=== PATIENT | male | born 1955 | race Caucasian/White ===

== ENCOUNTER → 2023-08-16 11:28 | Outpatient (REF) | payer OTHER, SELFPAY ==
[2023-08-16 12:52] LABS: Uric Acid 4.6 mg/dl (3.5-8.5)
== END ==
LOC: REG 11:28
PROVIDERS: ATTENDING PHYSICIAN Internal Medicine
DX: M10.9 Gout, unspecified (principal)
CPT/HCPCS: 36415; 73630; 84550

== ENCOUNTER → 2023-10-12 14:36 | Outpatient (REF) | payer OTHER, SELFPAY ==
[2023-10-12 16:05] LABS: % Basophils 0.4 % (0-2); % Eosinophils 0.3 % (0-6); % Immature Granulocytes 0.6 % (0-0.5); % Lymphocytes 10.1 % (20.5-51.1); % Monocytes 10.1 % (1.7-9.3); % Neutrophils 78.5 % (42.2-75.2); Absolute Immature Granulocytes 0.1 10^3/uL (0-0.05); Absolute Lymphocytes 1.1 10^3/uL (1.2-3.4); Absolute Monocytes 1.1 10^3/uL (0.1-0.6); Absolute Neutrophils 8.5 10^3/uL (1.4-6.5); Hematocrit 44.2 % (39.0-52.0); Hemoglobin 14.8 g/dL (13.0-18.0); Mean Corp Hgb Conc. 33.5 g/dL (33.0-37.0); Mean Corpuscular Hgb 28.6 pg (27.0-31.0); Mean Corpuscular Volume 85.5 fL (80.0-94.0); Mean Platelet Volume 10.1 fL (7.4-10.4); Nucleated Red Blood Cells % 0 % (-); Platelet Count 229 10^3/uL (130-400); Red Blood Cell Count 5.17 10^6/uL (4.70-6.10); Red Cell Dist. Width 13.2 % (11.5-14.5); White Blood Cell Count 10.8 10^3/uL (4.8-10.8)
[2023-10-12 16:11] LABS: Urine Albumin Trace (Neg - Trace); Urine Bilirubin 1+ (Negative); Urine Character Clear (Clear); Urine Color Yellow; Urine Glucose Negative (Negative); Urine Ketone Negative (Negative); Urine Leukocyte Trace (Negative); Urine Nitrite Negative (Negative); Urine Occult Blood Trace (Negative); Urine Urobilinogen 1+ (Neg - 1+)
[2023-10-12 16:30] LABS: Urine Mucus Few
[2023-10-12 16:31] LABS: Urine Bacteria Few (Negative); Urine Red Blood Cell 0-2 /HPF (0-2); Urine Squamous Cell 0-2 /LPF (Few); Urine White Cell 0-2 /HPF (0-5)
== END ==
LOC: RAD 14:36
PROVIDERS: ATTENDING PHYSICIAN Internal Medicine
DX: G45.9 Transient cerebral ischemic attack, unspecified (principal); R26.81 Unsteadiness on feet; R47.1 Dysarthria and anarthria; R63.4 Abnormal weight loss; R61 Generalized hyperhidrosis
CPT/HCPCS: 36415; 70450; 81003; 81015; 85025

== ENCOUNTER 2023-10-19 19:08 | Emergency (ER) | payer OTHER, SELFPAY ==
[2023-10-19 19:12] VITALS: BP 128/69; BMI 24.1
[2023-10-19 20:05] VITALS: BP 128/73
[2023-10-19 20:40] LABS: % Basophils 0.2 % (0-2); % Eosinophils 0.7 % (0-6); % Immature Granulocytes 0.4 % (0-0.5); % Lymphocytes 9.7 % (20.5-51.1); % Monocytes 8.4 % (1.7-9.3); % Neutrophils 80.6 % (42.2-75.2); Absolute Eosinophils 0.1 10^3/uL (0-0.7); Absolute Lymphocytes 0.8 10^3/uL (1.2-3.4); Absolute Monocytes 0.7 10^3/uL (0.1-0.6); Absolute Neutrophils 6.9 10^3/uL (1.4-6.5); Hematocrit 38.3 % (39.0-52.0); Hemoglobin 13.1 g/dL (13.0-18.0); Mean Corp Hgb Conc. 34.2 g/dL (33.0-37.0); Mean Corpuscular Hgb 28.2 pg (27.0-31.0); Mean Corpuscular Volume 82.4 fL (80.0-94.0); Mean Platelet Volume 9.2 fL (7.4-10.4); Nucleated Red Blood Cells % 0 % (-); Platelet Count 197 10^3/uL (130-400); Red Blood Cell Count 4.65 10^6/uL (4.70-6.10); Red Cell Dist. Width 13.3 % (11.5-14.5); White Blood Cell Count 8.5 10^3/uL (4.8-10.8)
[2023-10-19 20:55] LABS: ALT (SGPT) 19 U/L (0-50); AST (SGOT) 23 U/L (17-59); Albumin 3.6 g/dl (3.5-5.0); Alkaline Phosphatase 70 U/L (38-126); Blood Urea Nitrogen 22 mg/dl (9-20); Calcium 9.8 mg/dl (8.4-10.2); Carbon Dioxide 28 mmol/L (22-30); Chloride 99 mmol/L (98-107); Estimated Creatinine Clearance 109 ml/min; Glucose 106 mg/dl (70-99); Potassium 4.1 mmol/L (3.5-5.1); Sodium 133 mmol/L (135-145); Total Bilirubin 0.8 mg/dl (0.2-1.3); Total Protein 6.8 g/dl (6.3-8.2); eGFR > 60.00
[2023-10-19 21:00] VITALS: BP 126/67
[2023-10-19 21:26] LABS: TSH 1.29 uIU/ml (0.47-4.68)
[2023-10-19 22:00] VITALS: BP 109/55
--- NOTE | 2023-10-19 22:24 | ED.GENMED ---
History of Present Illness
<Kika Lujan PA-C - Last Filed: 10/20/23 02:20>
General
Chief Complaint: Gait Dysfunction
Source: patient
Exam Limitations: none
Time Seen by Provider: 10/19/23 19:44
Nursing documentation reviewed up to this point in time: agreed with
Travel History
Have you had any contact with someone who has COVID-19?: No
Do you have any symptoms of coronavirus? Fever > 100 degrees, chills, cough, shortness of breath, sore throat, loss of taste or smell, muscle aches, or headache?: No
History of Present Illness
History of Present Illness:
Patient is a 67 yo male who presents to the emergency department for difficulty with his gait, decreased appetite, unintentional weight loss, along with hoarse voice. Patient reports that his symptoms started in August but have progressively
worsened. Patient reports that he saw his primary care provider on 2 occasions and also went to an urgent care facility but they could not figure out what was wrong with him. Patient reports his primary care provider did perform labs which were
reportedly negative. He reports he also had a CT of his head which was also reportedly negative. Patient denies that he has been referred to any specialist. Patient reports he decided to come to the emergency department today because he is
frustrated with how he is feeling and his primary doctor also recommended it. Patient denies any headaches or dizziness recently. Patient denies any vision changes such as blurry vision or double vision. Patient denies any difficulty swallowing
but states that his voice is hoarse. Patient denies chest pain, palpitations, shortness of breath, cough, abdominal pain, nausea, vomiting, diarrhea, constipation. Patient notes that he has had a decreased appetite and has lost approximately 20
pounds since August as a result. Patient denies any diarrhea or constipation. Patient states that he has been holding onto objects in his home to get around. He reports that he is walking with a shuffling gait and sometimes gets frozen and
feels like he cannot move. Patient denies any weakness of his extremities. 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 Patient denies any recent travel, denies any
recent sick contacts. Patient denies family history of neurological diseases or autoimmune processes.
Past History
<Kika Lujan PA-C - Last Filed: 10/20/23 02:20>
Past History
ED Past Medical History: Asthma and Other
Social History
Tobacco: Former smoker
Alcohol: Daily
Personal:
Living: with family
Family History
Family History: CAD
Review of Systems
<Kika Lujan PA-C - Last Filed: 10/20/23 02:20>
Review of Systems
Allergies reviewed?: Yes
All Other Systems: ROS reviewed and negative except as documented in HPI and ROS
Constitutional: Reports weight loss
EENT: Reports other (hoarse voice)
Respiratory: Reports no symptoms; Denies cough or trouble breathing
Cardiac: Reports no symptoms
ABD/GI: Reports no symptoms
: Reports no symptoms
Musculoskeletal: Reports other (difficulty walking)
Skin: Reports no symptoms
Neurological: Reports no symptoms
Endocrine: Reports no symptoms
Hematologic/Lymphatic: Reports no symptoms
Psychiatric: Reports no symptoms
Phy Exam
<Kika Lujan PA-C - Last Filed: 10/20/23 02:20>
General Physical Exam
General Presentation: well appearing and no apparent distress
General Skin: warm and dry
General Habitus: normal
General Mental: alert
General Hydration: appears well hydrated
ENT Exam
ENT Exam: EOMI, pharynx normal, neck supple and normocephalic
Eye Exam
Eye Exam: PERRL, cornea clear and conjunctiva normal
Cardiovascular Exam
Cardiovascular Exam: regular rate/rhythm, no edema, no murmur and normal peripheral pulses
Pulmonary Exam
Pulmonary Exam: lungs clear, no respiratory distress, no rales, no crackles, no rhonchi, no stridor, no wheezing and no cough
Gastrointestinal Exam
Gastrointestinal Exam: normal bowel sounds, non tender, soft, no organomegaly, no pulsatile mass and non distended
Neurological Exam
Neurological Exam: alert, oriented x3, CN II-XII intact, no motor deficits, no sensory deficits, speech normal and abnormal gait
Cerebellar
Cerebellar Function: normal finger to nose and normal heel to ronquillo
Musculoskeletal Exam
Musculoskeletal Exam: full ROM and no edema
Skin Exam
Skin Exam: normal color, warm/dry, no rash and no petechia
Psychiatric Exam
Psychiatric Exam: normal mood/affect
Course
<Kika Lujan PA-C - Last Filed: 10/20/23 02:20>
Orders/Labs/Results
Orders:
Orders
10/19/23 20:34
Complete Blood Count/With Diff Urgent
Comprehensive Metabolic Panel Urgent
TSH Urgent
Abnormal Lab Results
10/19/23
20:34
RBC 4.65 L 10^6/uL
(4.70-6.10)
Hct 38.3 L %
(39.0-52.0)
Absolute Neuts (auto) 6.9 H 10^3/uL
(1.4-6.5)
Absolute Lymphs (auto) 0.8 L 10^3/uL
(1.2-3.4)
Absolute Monos (auto) 0.7 H 10^3/uL
(0.1-0.6)
Neutrophils % 80.6 H %
(42.2-75.2)
Lymphocytes % 9.7 L %
(20.5-51.1)
Sodium 133 L mmol/L
(135-145)
BUN 22 H mg/dl
(9-20)
Glucose 106 H mg/dl
(70-99)
10/19/23 20:34
10/19/23 20:34
Vital Signs
Initial and Last Documented VS:
Initial Vital Signs
Temp Pulse Resp BP Pulse Ox
99.6 F 88 16 128/69 99
10/19/23 19:12 10/19/23 19:12 10/19/23 19:12 10/19/23 19:12 10/19/23 19:12
Last Documented Vital Signs
Temp Pulse Resp BP Pulse Ox
99.6 F 88 16 109/55 97
10/19/23 19:12 10/19/23 19:12 10/19/23 19:12 10/19/23 22:00 10/19/23 20:32
<Silas Frias, DO - Last Filed: 10/20/23 00:27>
Orders/Labs/Results
Orders:
Orders
10/19/23 20:34
Complete Blood Count/With Diff Urgent
Comprehensive Metabolic Panel Urgent
TSH Urgent
Abnormal Lab Results
10/19/23
20:34
RBC 4.65 L 10^6/uL
(4.70-6.10)
Hct 38.3 L %
(39.0-52.0)
Absolute Neuts (auto) 6.9 H 10^3/uL
(1.4-6.5)
Absolute Lymphs (auto) 0.8 L 10^3/uL
(1.2-3.4)
Absolute Monos (auto) 0.7 H 10^3/uL
(0.1-0.6)
Neutrophils % 80.6 H %
(42.2-75.2)
Lymphocytes % 9.7 L %
(20.5-51.1)
Sodium 133 L mmol/L
(135-145)
BUN 22 H mg/dl
(9-20)
Glucose 106 H mg/dl
(70-99)
10/19/23 20:34
10/19/23 20:34
Vital Signs
Initial and Last Documented VS:
Initial Vital Signs
Temp Pulse Resp BP Pulse Ox
99.6 F 88 16 128/69 99
10/19/23 19:12 10/19/23 19:12 10/19/23 19:12 10/19/23 19:12 10/19/23 19:12
Last Documented Vital Signs
Temp Pulse Resp BP Pulse Ox
99.6 F 88 16 109/55 97
10/19/23 19:12 10/19/23 19:12 10/19/23 19:12 10/19/23 22:00 10/19/23 20:32
<Kika Lujan PA-C - Last Filed: 10/20/23 02:20>
*Critical Care Note
Total Time (30-74mins, 75-104mins- exclusive of procedures): Not Applicable
<Kika Lujan PA-C - Last Filed: 10/20/23 02:20>
Update Note
Update Note:
Patient is a 67-year-old male without significant past medical history who presents to the emergency department for evaluation of symptoms for the past 2 months. Patient endorses worsening hoarse voice, decreased appetite, unintentional weight
loss, and difficulty ambulating. Patient has been seen as an outpatient for these problems but without formal diagnosis found. On arrival, patient's vital signs are stable, he is afebrile. On exam, patient is quite well-appearing, he is in no
acute distress, he has a normal cardiopulmonary exam, he has a benign abdomen, he has no focal neurological deficits and has normal strength and coordination in his lower extremities. Patient's gait was observed and does appear to be a slow
shuffling gait. CT performed recently was reviewed and demonstrates no acute intracranial abnormality to account for the patient's symptoms, do not feel that patient would benefit from this being repeated today. Labs were obtained and are
nonactionable. Case was discussed with ED attending who also evaluated the patient. I spoke with the patient at length and he feels comfortable being discharged to home. He reports that he feels safe at home. He was encouraged to follow-up
closely with neurology for definitive diagnosis and treatment. Patient was also educated on strict return precautions, he expressed understanding of the plan and agreed.
ED Attending Note
<Kika Lujan PA-C - Last Filed: 10/20/23 02:20>
-
Portions of this chart may have been created with voice recognition software.� Occasional wrong word or��sound alike� substitutions may have occurred due to the inherent limitations of voice recognition software.
<Silas Frias DO - Last Filed: 10/20/23 00:27>
ED Attending Note
Patient seen and examined by attending physician: Yes
I performed the substantive portion of visit, reviewed & personally made and approve the management plan that is documented in note by myself or JUNITO.: Yes
ED Attending Note:
Agree with JAI note above. In short 67-year-old male who is seen his PCP several times for complaints that they 'cannot figure out'. Reports difficulty with ambulation. Exam: Normal [id number]. Normal strength. Normal distal pulses. Normal
gross neuroassessment. Outpatient CT report reviewed. Assessment and plan: Does need outpatient neurology follow-up. Labs grossly unremarkable.
Discharge Plan
Departure
Patient Disposition: Home (Routine Discharge)
Date of Disposition: 10/19/23
Time of Disposition: 22:38
Patient with high blood pressure during this ER visit?: No
Condition: Good
Covid-19: Not Applicable
Discharge Problem:
Abnormality of gait, Unintentional weight loss
Instructions: Preventing Falls ED
Prescriptions:
No Action
multivitamin with folic acid [Tab-A-Michelle] 1 TABLET tablet
1 tab PO DAILY Qty: 0 0RF
diazepam 10 mg Tablet
10 mg PO HSPRN PRN (Reason: sleep)
acetaminophen [Tylenol] 325 mg Tablet
650 mg PO Q6HPRN PRN (Reason: mild pain)
Referrals:
Migel Mendoza MD [Active] - Follow up in 5-7 days
Kory Anglin MD [Family Provider] -
Activity Restrictions/Additional Instructions:
You were seen in the emergency department for recent abnormal gait, decreased appetite, unintentional weight loss, and hoarse voice. While you were in the emergency department, you had blood work which shows no dangerous abnormalities. The exact
cause of your symptoms is unclear. It is extremely important that you follow-up with a neurologist for further evaluation and treatment as we suspect you could be suffering from a neurological condition. In the meantime, please walk carefully to
avoid falling. Please return to the emergency department if you feel unsafe at home, if you fall or feel like you are going to fall, if you have weakness of one or more of your extremities, or for any other worsening or concerning symptoms.
Interventions
Interventions:
*Risk Screen - Suicide Last Done: 10/19/23 19:12
*General Assessment Last Done: 10/19/23 20:07
*Neglect/Abuse Screening Last Done: 10/19/23 19:12
ED- Fall Risk Assessment Last Done: 10/19/23 20:07
*ED COVID-19 Vaccine History Last Done: 10/19/23 19:12
*Nursing Disposition Last Done: 10/19/23 23:17
ED- Neurological Assessment Last Done: 10/19/23 20:07
ED-Musculoskeletal Assessment Last Done: 10/19/23 20:07
ED Swallowing Screen Last Done: 10/19/23 20:07
Discharge Date and Time
Discharge Date/Time: 10/19/23 23:17
Print Language: ZAMBIAN
== END 2023-10-19 23:17 | disposition home or self-care (01) ==
LOC: EMR 19:08
PROVIDERS: Physician Assistant Medical; EMERGENCY PHYSICIAN Emergency Medicine; FAMILY PHYSICIAN Internal Medicine
DX: R26.9 Unspecified abnormalities of gait and mobility (principal); R63.4 Abnormal weight loss; J45.909 Unspecified asthma, uncomplicated; Z87.891 Personal history of nicotine dependence; Z82.49 Family history of ischemic heart disease and other diseases of the circulatory system
CPT/HCPCS: 99283; 80053; 84443; 85025

== ENCOUNTER → 2023-11-16 11:05 | Outpatient (REF) | payer OTHER, SELFPAY | LOC: HWRCS 11:05 | PROVIDERS: ATTENDING PHYSICIAN Nuclear Medicine Nuclear Cardiology; FAMILY PHYSICIAN Internal Medicine | DX: I34.0 Nonrheumatic mitral (valve) insufficiency (principal); I38 Endocarditis, valve unspecified | CPT/HCPCS: 93306 ==

== ENCOUNTER → 2024-01-04 09:08 | Outpatient (REF) | payer OTHER, SELFPAY | LOC: RCS 09:08 | PROVIDERS: ATTENDING PHYSICIAN Nuclear Medicine Nuclear Cardiology; FAMILY PHYSICIAN Internal Medicine | DX: I34.0 Nonrheumatic mitral (valve) insufficiency (principal); I34.81 Nonrheumatic mitral (valve) annulus calcification; I37.1 Nonrheumatic pulmonary valve insufficiency; I15.9 Secondary hypertension, unspecified | CPT/HCPCS: 93017; 93350 ==

== ENCOUNTER → 2024-03-31 09:58 | Outpatient (REF) | payer OTHER, SELFPAY | LOC: RCS 09:58 | PROVIDERS: ATTENDING PHYSICIAN Nuclear Medicine Nuclear Cardiology; FAMILY PHYSICIAN Internal Medicine | DX: I34.0 Nonrheumatic mitral (valve) insufficiency (principal); R06.02 Shortness of breath | CPT/HCPCS: 93306 ==

== ENCOUNTER → 2024-04-30 07:21 | Outpatient (REF) | payer MEDICARE, SELFPAY ==
[2024-04-30 08:05] LABS: % Basophils 0.6 % (0-2); % Eosinophils 2.5 % (0-6); % Immature Granulocytes 0.3 % (0-0.5); % Lymphocytes 26.6 % (20.5-51.1); % Monocytes 8.8 % (1.7-9.3); % Neutrophils 61.2 % (42.2-75.2); Absolute Eosinophils 0.2 10^3/uL (0-0.7); Absolute Lymphocytes 1.8 10^3/uL (1.2-3.4); Absolute Monocytes 0.6 10^3/uL (0.1-0.6); Absolute Neutrophils 4.2 10^3/uL (1.4-6.5); Hemoglobin 16.7 g/dL (13.0-18.0); Mean Corp Hgb Conc. 34.1 g/dL (33.0-37.0); Mean Corpuscular Hgb 29.6 pg (27.0-31.0); Mean Corpuscular Volume 86.7 fL (80.0-94.0); Mean Platelet Volume 10.6 fL (7.4-10.4); Nucleated Red Blood Cells % 0 % (-); Platelet Count 193 10^3/uL (130-400); Red Blood Cell Count 5.65 10^6/uL (4.70-6.10); Red Cell Dist. Width 13.7 % (11.5-14.5); White Blood Cell Count 6.8 10^3/uL (4.8-10.8)
[2024-04-30 08:44] LABS: ALT (SGPT) 26 U/L (0-50); AST (SGOT) 24 U/L (17-59); Albumin 4.5 g/dl (3.5-5.0); Alkaline Phosphatase 54 U/L (38-126); Blood Urea Nitrogen 22 mg/dl (9-20); Calcium 9.7 mg/dl (8.4-10.2); Carbon Dioxide 30 mmol/L (22-30); Chloride 101 mmol/L (98-107); Glucose 96 mg/dl (70-99); Potassium 4.2 mmol/L (3.5-5.1); Sodium 141 mmol/L (135-145); Total Bilirubin 1.3 mg/dl (0.2-1.3); Total Protein 7.1 g/dl (6.3-8.2); eGFR > 60.00
[2024-04-30 09:08] LABS: PSA, Total - Screen 1.36 ng/ml (0.0-4.0); TSH 1.51 uIU/ml (0.47-4.68)
== END ==
LOC: REG 07:21
PROVIDERS: ATTENDING PHYSICIAN Internal Medicine
DX: I33.0 Acute and subacute infective endocarditis (principal); B95.5 Unspecified streptococcus as the cause of diseases classified elsewhere; I34.0 Nonrheumatic mitral (valve) insufficiency; G47.33 Obstructive sleep apnea (adult) (pediatric); F32.1 Major depressive disorder, single episode, moderate; Z00.00 Encounter for general adult medical examination without abnormal findings; Z12.5 Encounter for screening for malignant neoplasm of prostate
CPT/HCPCS: 36415; 80053; 84443; 85025; G0103

== ENCOUNTER → 2024-07-26 12:49 | Outpatient (REF) | payer MEDICARE, SELFPAY | LOC: MRI 3T 12:49 | PROVIDERS: ATTENDING PHYSICIAN Internal Medicine | DX: R26.9 Unspecified abnormalities of gait and mobility (principal); R29.6 Repeated falls; G25.2 Other specified forms of tremor; R41.3 Other amnesia; Z86.79 Personal history of other diseases of the circulatory system; I34.0 Nonrheumatic mitral (valve) insufficiency | CPT/HCPCS: 70551 ==

== ENCOUNTER → 2024-09-26 15:46 | Outpatient (REF) | payer MEDICARE, SELFPAY ==
[2024-09-26 16:30] LABS: % Basophils 0.5 % (0-2); % Eosinophils 1.4 % (0-6); % Immature Granulocytes 0.2 % (0-0.5); % Lymphocytes 28.9 % (20.5-51.1); % Monocytes 11.6 % (1.7-9.3); % Neutrophils 57.4 % (42.2-75.2); Absolute Eosinophils 0.1 10^3/uL (0-0.7); Absolute Lymphocytes 1.7 10^3/uL (1.2-3.4); Absolute Monocytes 0.7 10^3/uL (0.1-0.6); Absolute Neutrophils 3.3 10^3/uL (1.4-6.5); Hematocrit 43.7 % (39.0-52.0); Hemoglobin 14.7 g/dL (13.0-18.0); Mean Corp Hgb Conc. 33.6 g/dL (33.0-37.0); Mean Corpuscular Hgb 29.5 pg (27.0-31.0); Mean Corpuscular Volume 87.8 fL (80.0-94.0); Mean Platelet Volume 10.5 fL (7.4-10.4); Nucleated Red Blood Cells % 0 % (-); Platelet Count 201 10^3/uL (130-400); Red Blood Cell Count 4.98 10^6/uL (4.70-6.10); Red Cell Dist. Width 13.2 % (11.5-14.5); White Blood Cell Count 5.7 10^3/uL (4.8-10.8)
[2024-09-26 16:46] LABS: Erythrocyte Sed Rate 10 mm/hour (0-20)
[2024-09-26 16:52] LABS: ALT (SGPT) 21 U/L (0-50); AST (SGOT) 22 U/L (17-59); Albumin 4.3 g/dl (3.5-5.0); Alkaline Phosphatase 77 U/L (38-126); Blood Urea Nitrogen 17 mg/dl (9-20); Calcium 9.8 mg/dl (8.4-10.2); Carbon Dioxide 29 mmol/L (22-30); Chloride 100 mmol/L (98-107); Glucose 81 mg/dl (70-99); Sodium 137 mmol/L (135-145); Total Bilirubin 1.2 mg/dl (0.2-1.3); Total Protein 6.9 g/dl (6.3-8.2); eGFR > 60.00
[2024-09-26 17:18] LABS: TSH 1.17 uIU/ml (0.47-4.68)
== END ==
LOC: REG 15:46
PROVIDERS: ATTENDING PHYSICIAN Internal Medicine
DX: R26.9 Unspecified abnormalities of gait and mobility (principal); R29.6 Repeated falls; G25.2 Other specified forms of tremor; R41.3 Other amnesia; Z86.79 Personal history of other diseases of the circulatory system; I34.0 Nonrheumatic mitral (valve) insufficiency
CPT/HCPCS: 36415; 80053; 84443; 85025; 85652

== ENCOUNTER 2024-10-27 07:45 | Emergency (ER) | payer MEDICARE, SELFPAY ==
[2024-10-27 07:50] VITALS: BP 143/77
--- NOTE | 2024-10-27 08:24 | ED.GENMED ---
History of Present Illness
<TARIQ De Santiago - Last Filed: 10/27/24 09:38>
General
Chief Complaint: Musculo-Skeletal Complaint
Source: patient
Exam Limitations: none
Time Seen by Provider: 10/27/24 08:10
Nursing documentation reviewed up to this point in time: agreed with
History of Present Illness
History of Present Illness:
Patient is a 5-year-old male who presents to the ER for evaluation. He reports he is here for 2 separate complaints. About a week ago he fell in his left hip and has obvious swelling to the hip. He denies any actual pain and has been walking on
it fine. He denies any other injury at that time. He did not hit his head. In addition he also complains of sudden loss of hearing from his right ear that started a week and a half ago. He does report however that he has been already seeing ENT
and is scheduled for more test in the next month. He denies any ear pain or drainage. Denies any recent associated fever or chills. Denies any headache blurry vision. No other neurological complaints. He denies any upper lower extremity
numbness tingling weakness.
Past History
<TARIQ De Santiago - Last Filed: 10/27/24 09:38>
Past History
ED Past Medical History: Asthma and Other
Social History
Tobacco: Former smoker
Alcohol: Daily
Personal:
Living: with family
Family History
Family History: CAD
Phy Exam
<TARIQ De Santiago - Last Filed: 10/27/24 09:38>
General Physical Exam
General Presentation: no apparent distress
General age: appears stated age
General Skin: warm and dry
General Habitus: normal
General Mental: alert
General Hydration: appears well hydrated
ENT Exam
ENT Exam: EOMI, TM's normal and neck supple
Cardiovascular Exam
Cardiovascular Exam: regular rate/rhythm, no murmur and normal peripheral pulses
Pulmonary Exam
Pulmonary Exam: lungs clear and no respiratory distress
Neurological Exam
Neurological Exam: alert, oriented x3, no motor deficits and no sensory deficits
Musculoskeletal Exam
Musculoskeletal Exam: full ROM
Skin Exam
Skin Exam: normal color and warm/dry
Psychiatric Exam
Psychiatric Exam: normal mood/affect
Course
<JANN De SantiagoNP - Last Filed: 10/27/24 09:38>
Orders/Labs/Results
Orders:
Orders
10/27/24 08:24
Hip, Left 2-3 Views [CR Hip - LT w/wo Pel 2-3 Vw*] Urgent
Comment:
Reason For Exam: trauma
Include a pelvis x-ray?: Yes
10/27/24 08:25
CT Head W/o Iv Contrast Urgent
Comment:
Reason For Exam: sudden loss of hearing 1.5 wks ago left EAR
Vital Signs
Initial and Last Documented VS:
Initial Vital Signs
Temp Pulse Resp BP Pulse Ox
98.0 F 67 16 143/77 98
10/27/24 07:50 10/27/24 07:50 10/27/24 07:50 10/27/24 07:50 10/27/24 07:50
Last Documented Vital Signs
Temp Pulse Resp BP Pulse Ox
98.0 F 67 16 143/77 98
10/27/24 07:50 10/27/24 07:50 10/27/24 07:50 10/27/24 07:50 10/27/24 07:50
<Josh Akhtar DO - Last Filed: 10/27/24 09:22>
Orders/Labs/Results
Orders:
Orders
10/27/24 08:24
Hip, Left 2-3 Views [CR Hip - LT w/wo Pel 2-3 Vw*] Urgent
Comment:
Reason For Exam: trauma
Include a pelvis x-ray?: Yes
10/27/24 08:25
CT Head W/o Iv Contrast Urgent
Comment:
Reason For Exam: sudden loss of hearing 1.5 wks ago left EAR
Vital Signs
Initial and Last Documented VS:
Initial Vital Signs
Temp Pulse Resp BP Pulse Ox
98.0 F 67 16 143/77 98
10/27/24 07:50 10/27/24 07:50 10/27/24 07:50 10/27/24 07:50 10/27/24 07:50
Last Documented Vital Signs
Temp Pulse Resp BP Pulse Ox
98.0 F 67 16 143/77 98
10/27/24 07:50 10/27/24 07:50 10/27/24 07:50 10/27/24 07:50 10/27/24 07:50
<TARIQ De Santiago - Last Filed: 10/27/24 09:38>
MDM/Problems Addressed
Differential Diagnosis Includes:
not limited to:
Hip contusion less likely hip fracture, hematoma hearing loss(currently being worked up by ENT)
MDM/Problems Addressed:
Patient is a 68 year-old male who presented for 2 complaints. Patient fell and injured his left hip about a week ago and on exam has an obvious what appears to be a hematoma to his left lateral proximal hip/thigh region. He has full
internal/external rotation and is able to bear weight. Clinically this examines like a hematoma. He is in no acute distress. There is no other extremity swelling. He is not on blood thinners. In addition patient reports separately that for over
a week and a half he has noticed that he has lost his hearing in his right ear. He however is in the process of getting worked up by an ENT and has additional testing scheduled in the later month. He has no ear pain and on exam his TM is dull
however there is no obvious cerumen buildup. He is nontoxic. He has no associated neurological problem complaints. His neurological exam is negative. His CT head is negative
Case discussed ED physician. Will have patient continue with ENT follow-up.
<TARIQ De Santiago - Last Filed: 10/27/24 09:38>
*Radiology
Radiology exam reviewed: radiology read reviewed
*Pulse Oximetry
Patient hypoxic: no
ED Attending Note
<TARIQ De Santiago - Last Filed: 10/27/24 09:38>
-
Portions of this chart may have been created with voice recognition software.� Occasional wrong word or��sound alike� substitutions may have occurred due to the inherent limitations of voice recognition software.
<Josh Akhtar DO - Last Filed: 10/27/24 09:22>
ED Attending Note
Patient seen and examined by attending physician: Yes
I performed the substantive portion of visit, reviewed & personally made and approve the management plan that is documented in note by myself or JUNITO.: Yes
ED Attending Note:
I have seen and evaluated the patient with a [id number] encounter. I have spoken to the advance practicer provider and involved in the medical history, the physical exam, medical decision making.
Evaluation and management service: agree unless noted differently below.
Results interpretation: agree unless noted differently below.
Focused HPI: 68-year-old male presenting for evaluation of right sided hearing loss and left hip pain. The 2 appear to be unrelated. He noticed sudden onset of hearing loss in the right ear. He denies any congestion or headache or preceding
symptoms. Patient did have a recent fall and has swelling over left hip.
Physical exam: Patient has what appears to be hematoma to his left hip. He does have hearing loss to the right ear but canal clear. Normal finger-nose bilaterally. No nystagmus
Medical Decision Making: CT head negative. Hip x-ray negative. Discussed likely hematomas left hip. This will likely self resolve. We discussed follow-up with ENT for further workup of hearing loss
Discharge Plan
Departure
Patient Disposition: Home (Routine Discharge)
Date of Disposition: 10/27/24
Time of Disposition: 09:17
Patient with high blood pressure during this ER visit?: Yes
Condition: Fair
Covid-19: Not Applicable
Discharge Problem:
Hematoma, Contusion, Hearing loss
Instructions: Hearing Loss in Adults, Contusion (DC)
Prescriptions:
No Action
multivitamin with folic acid [Tab-A-Michelle] 1 TABLET tablet
1 tab PO DAILY Qty: 0 0RF
diazepam 10 mg Tablet
10 mg PO HSPRN PRN (Reason: sleep)
acetaminophen [Tylenol] 325 mg Tablet
650 mg PO Q6HPRN PRN (Reason: mild pain)
Referrals:
Kory Anglin MD [Family Provider] -
Activity Restrictions/Additional Instructions:
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
Regarding the left hip swelling ;this is a contusion which will resolve on its own. Return if any worsening of symptoms. Follow-up with your family doctor the next 2 days for reevaluation.
Interventions
Interventions:
*Risk Screen - Suicide Last Done: 10/27/24 07:50
*Neglect/Abuse Screening Last Done: 10/27/24 07:50
Discharge Date and Time
Print Language: CAMEROONIAN
[2024-10-27 09:00] VITALS: BP 139/85
== END 2024-10-27 09:45 | disposition home or self-care (01) ==
LOC: EMR 07:45
PROVIDERS: EMERGENCY PHYSICIAN Student in an Organized Health Care Education/Training Program; FAMILY PHYSICIAN Internal Medicine
DX: S70.02XA Contusion of left hip, initial encounter (principal); H91.91 Unspecified hearing loss, right ear; X58.XXXA Exposure to other specified factors, initial encounter; J45.909 Unspecified asthma, uncomplicated; Z82.49 Family history of ischemic heart disease and other diseases of the circulatory system; Z87.891 Personal history of nicotine dependence
CPT/HCPCS: 99284; 70450; 73502

== ENCOUNTER → 2024-12-23 09:59 | Outpatient (REF) | payer MEDICARE, SELFPAY ==
[2024-12-23 12:26] LABS: % Basophils 0.7 % (0-2); % Eosinophils 0.7 % (0-6); % Immature Granulocytes 0.4 % (0-0.5); % Lymphocytes 10.7 % (20.5-51.1); % Monocytes 8.3 % (1.7-9.3); % Neutrophils 79.2 % (42.2-75.2); Absolute Basophils 0.1 10^3/uL (0-0.2); Absolute Eosinophils 0.1 10^3/uL (0-0.7); Absolute Lymphocytes 0.7 10^3/uL (1.2-3.4); Absolute Monocytes 0.6 10^3/uL (0.1-0.6); Absolute Neutrophils 5.3 10^3/uL (1.4-6.5); Hematocrit 47.9 % (39.0-52.0); Hemoglobin 15.7 g/dL (13.0-18.0); Mean Corp Hgb Conc. 32.8 g/dL (33.0-37.0); Mean Corpuscular Hgb 28.7 pg (27.0-31.0); Mean Corpuscular Volume 87.6 fL (80.0-94.0); Mean Platelet Volume 10.4 fL (7.4-10.4); Nucleated Red Blood Cells % 0 % (-); Platelet Count 251 10^3/uL (130-400); Red Blood Cell Count 5.47 10^6/uL (4.70-6.10); Red Cell Dist. Width 12.8 % (11.5-14.5); White Blood Cell Count 6.7 10^3/uL (4.8-10.8)
[2024-12-23 12:49] LABS: Erythrocyte Sed Rate 9 mm/hour (0-20)
[2024-12-23 13:11] LABS: Blood Urea Nitrogen 30 mg/dl (9-20)
[2024-12-25 13:43] LABS: Rheumatoid Agglutinin Less Than 10 IU (<10 IU)
== END ==
LOC: PAVMRI 09:59
PROVIDERS: ATTENDING PHYSICIAN Otolaryngology; FAMILY PHYSICIAN Internal Medicine
DX: H91.21 Sudden idiopathic hearing loss, right ear (principal); G47.33 Obstructive sleep apnea (adult) (pediatric)
CPT/HCPCS: 36415; 70553; 82565; 84520; 85025; 85652; 86038; 86430; 86780; A9575

== ENCOUNTER 2025-01-01 11:49 | Inpatient (IN) | payer MEDICARE, SELFPAY ==
[2024-12-31 19:48] VITALS: BMI 23.6
[2024-12-31 19:50] VITALS: BP 134/76
[2024-12-31 21:38] VITALS: BP 137/71
[2024-12-31 21:53] LABS: % Basophils 0.7 % (0-2); % Eosinophils 0.8 % (0-6); % Immature Granulocytes 0.3 % (0-0.5); % Lymphocytes 16.1 % (20.5-51.1); % Neutrophils 67.1 % (42.2-75.2); Absolute Basophils 0.1 10^3/uL (0-0.2); Absolute Eosinophils 0.1 10^3/uL (0-0.7); Absolute Lymphocytes 1.2 10^3/uL (1.2-3.4); Absolute Monocytes 1.1 10^3/uL (0.1-0.6); Absolute Neutrophils 4.9 10^3/uL (1.4-6.5); Hematocrit 40.2 % (39.0-52.0); Hemoglobin 13.6 g/dL (13.0-18.0); Mean Corp Hgb Conc. 33.8 g/dL (33.0-37.0); Mean Corpuscular Volume 85.7 fL (80.0-94.0); Mean Platelet Volume 10.2 fL (7.4-10.4); Nucleated Red Blood Cells % 0 % (-); Platelet Count 188 10^3/uL (130-400); Red Blood Cell Count 4.69 10^6/uL (4.70-6.10); Red Cell Dist. Width 13.2 % (11.5-14.5); White Blood Cell Count 7.4 10^3/uL (4.8-10.8)
[2024-12-31 22:00] VITALS: BP 144/74
--- NOTE | 2024-12-31 22:01 | ED.GENMED ---
History of Present Illness
General
Chief Complaint: Social Service Referral
Source: patient
Time Seen by Provider: 12/31/24 21:23
History of Present Illness
History of Present Illness:
Note:
CHIEF COMPLAINT(S)
Seeking assistance due to inability to self-care.
HISTORY OF PRESENT ILLNESS
The patient is a 69-year-old male who presented to the emergency department due to difficulties in self-care and otherwise multiple vague symptoms including reported mass/edema to right upper thigh/pelvis, lack of PO intake to solids and liquids,
generalized fatigue, right ear fullness. The symptoms began approximately three weeks ago. The patient recently had assistance from a brother but is now unable to care for himself and is seeking help, as he lives alone in a third-floor apartment.
He denies any chronic medical conditions and is not on any regular medications. He reports no chest pain, difficulty breathing, or lower extremity swelling although patient does show me a mass/lump on his left anterior thigh/pelvic region that he
states was only present about 2 weeks ago, does not seem to be growing in size since noticing the mass.. He also denies feeling depressed or suicidal but expresses vague symptoms and is uncertain about the specific help needed. The patient denies
any falls. He denies a family history of cancer and does not smoke cigarettes or use tobacco or alcohol.
SOCIAL DETERMINANTS AFFECTING HEALTH
The patient lives alone in a third-floor apartment and currently lacks assistance with self-care.
FAMILY HISTORY
The patient denies any family history of cancer.
SOCIAL HISTORY
The patient does not smoke cigarettes or use tobacco. He also denies alcohol consumption.
Past History
Past History
ED Past Medical History: Asthma and Other
Social History
Tobacco: Former smoker
Alcohol: Daily
Personal:
Living: with family
Family History
Family History: CAD
Review of Systems
Review of Systems
All Other Systems: ROS reviewed and negative except as documented in HPI and ROS
Phy Exam
Physical Exam
Physical Exam:
GENERAL: Alert , in no apparent distress
HEAD: Normocephalic atraumatic
EYE: Clear conjunctiva
NECK: Supple
ENT: o/p clr, mmm.
CARDIAC: Regular rate and rhythm .
LUNGS: Clear breath sounds bilaterally, no acute respiratory distress, no wheezes/rales/rhonchi
ABDOMEN: Soft, without focal tenderness, no r/g, no cvat
NEUROLOGICAL: Alert and oriented, no focal neuro deficits
SKIN: Warm and dry, Large firm and nonmobile masslike structure appreciated to the left anterior proximal thigh/pelvis without any overlying skin changes
MUSCULOSKELETAL: No edema, well perfused.
PSYCH: Normal and appropriate interaction.
Scores
Heart Failure Risk
Heart Failure Risk Score: Not Applicable
Heart Score for Chest Pain Patients
STEMI patient?: Not applicable
Withdrawal Assessment of Alcohol
Withdrawal Assessment Completed?: Not applicable
Course
Orders/Labs/Results
Orders:
Orders
12/31/24 21:43
Complete Blood Count/With Diff Urgent
Comprehensive Metabolic Panel Urgent
12/31/24 21:47
CT Pelvis With Iv Contrast Urgent
Comment:
Reason For Exam: right thigh/pelvic mass, extend to right thigh
12/31/24 23:14
Crisis Consult Urgent
Reason for Consult: possible SI
01/01/25
DIETARY IP CONSULT Routine
Reason for Consult: 20lb weight loss
01/01/25 00:37
Case Management Consult ONCE
Case Management Consult: Discharge Planning
Comment: VN/possible rehab. needs outpatient follow up/testing
01/01/25 02:37
Admit/Transfer Patient As Directed
Co-Sign Provider:
Level of Care: Observation services
Assign to:: Medical/Surgical
Physician / Group: Basil
Diagnosis: L Thigh Mass
01/01/25 02:38
PRN Pain Medication Management As Directed
May give lesser potent ordered pain med per pt: Yes
preference::
Protocol:: Medication orders for pain may be administered in a
manner that supports deferring to patient preference
when the pt is:
- Requesting an ordered lesser potent pain medication.
Least to most potent pain medications are defined
as: acetaminophen < NSAID < tramadol < opioids
(morphine, oxycodone, hydromorphone).
- Requesting a lesser dose of the same medication IF
ORDERED.
- Requesting a less intrusive route of administration
if both routes are prescribed by the provider (PO <
IV).
01/01/25 02:39
Code Status As Directed
Resuscitation Status: Full Code
01/01/25 03:00
Flush (0.9% Sodium Chloride) [Flush (Nss)] See Dose Instructions IV PER PROTOCOL
01/01/25 03:24
Acetaminophen [Tylenol] 650 mg PO Q4HPRN PRN
Lactated Ringers [Lr] 1,000 ml IV 100 mls/hr
01/01/25 03:24
Consult Interventional Radiology [IRAD CONSULT] Routine
Consulting Provider: Abdiaziz Doty
Was physician already notified: No
Procedure being ordered, including laterality if applicable: Left Thigh Mass Biopsy
Acknowledgement that appropriate orders are entered: N/A
Consult Notification Routine
Specialty to Notify: IRAD (Interventional Radiology)
Date consulting provider notified: 01/01/25
Time consulting provider notified: 07:16
Notified:: Provider
Comment: ABDIAZIZ DOTY
Consult Notification Routine
Specialty to Notify: Psychiatry
Date consulting provider notified: 01/01/25
Time consulting provider notified: 07:15
Notified:: Provider
Comment: ALFA HALE
PSYCHIATRY CONSULT Routine
Consulting Provider: Alfa Hale
Was physician already notified: No
Reason for consult: Depression
Activity As Directed
Activity Level: Ambulate
With Assistance
I/O [Intake/ Output] As Directed
Frequency: Per unit guidelines
Vital Signs As Directed
Frequency: Per unit guidelines
Weight As Directed
Frequency: Daily
Oxygen Therapy [O2 Therapy] [RESP] Routine
Titrate/Wean O2 to maintain O2 sat greater than (%): 94
PT Consult [Pt Eval And Treat] Routine
Activity Level: Ambulate
With Assistance
DX Deep Vein Thrombosis Video Routine
01/01/25 03:51
Pt Screening Request from Anton Routine
01/01/25 Breakfast
NPO
Allow oral meds: Yes
Allow clear liquids: Sips of Clears
Regular
At Your Request: Limited Participation
01/01/25 06:54
Basic Metabolic Panel IN AM
Complete Blood Count/No Diff IN AM
01/01/25 11:42
OT Consult [Ot Eval And Treat] Routine
Treatment: Recommended by PT/ Await MD signature
01/01/25 18:00
Enoxaparin Sodium [Lovenox] 40 mg SC QPM
01/02/25 06:04
Complete Blood Count/With Diff IN AM
Comprehensive Metabolic Panel IN AM
01/02/25 09:00
CT Chest/abd w/wo IV Contrast Routine
Comment: Note: this is for Sunday AM
Reason For Exam: Adenopathy / Pancreatic Mass / ? sarcoma
01/03/25 06:00
Complete Blood Count/With Diff IN AM
Comprehensive Metabolic Panel IN AM
01/04/25 06:00
Complete Blood Count/With Diff IN AM
Comprehensive Metabolic Panel IN AM
01/05/25 06:00
Complete Blood Count/With Diff IN AM
Comprehensive Metabolic Panel IN AM
01/06/25 06:00
Complete Blood Count/With Diff IN AM
Comprehensive Metabolic Panel IN AM
Abnormal Lab Results
12/31/24 01/01/25
21:43 06:54
RBC 4.69 L 10^6/uL 4.62 L 10^6/uL
(4.70-6.10) (4.70-6.10)
MPV 10.6 H fL
(7.4-10.4)
Absolute Monos (auto) 1.1 H 10^3/uL
(0.1-0.6)
Lymphocytes % 16.1 L %
(20.5-51.1)
Monocytes % 15.0 H %
(1.7-9.3)
BUN 25 H mg/dl
(9-20)
01/01/25 06:54
01/01/25 06:54
Vital Signs
Initial and Last Documented VS:
Initial Vital Signs
Temp Pulse Resp BP Pulse Ox
98.3 F 85 16 134/76 99
12/31/24 19:50 12/31/24 19:50 12/31/24 19:50 12/31/24 19:50 12/31/24 19:50
Last Documented Vital Signs
Temp Pulse Resp BP Pulse Ox
98 F 71 17 154/73 99
01/02/25 15:45 01/02/25 15:45 01/02/25 15:45 01/02/25 15:45 01/02/25 15:45
MDM/Problems Addressed
Differential Diagnosis Includes:
The Differential Diagnosis includes, in no particular order and is not limited to:
- Functional decline due to age-related issues
- Undiagnosed chronic illness
- Musculoskeletal pain/mass/malignancy
- Depression
- Social isolation
- Nutritional deficiencies
- Delirium or cognitive decline
- Infection
- Neurological disorder
MDM/Problems Addressed:
Laboratory tests and imaging will be conducted to evaluate the patients condition further. It is overall unclear as to if patient has an emergent nature for his symptoms. Hemodynamically he is stable. Disposition pending
*Radiology
Radiology exam reviewed: radiology read reviewed
*Pulse Oximetry
SaO2: 99
Oxygen Mode of Delivery: Room air
*Critical Care Note
Total Time (30-74mins, 75-104mins- exclusive of procedures): Not Applicable
Comment
Comment:
I had an extensive conversation with patient's brother via telephone. Brother relayed that patient expressed suicidal ideation with plan to not eat or drink anything over a 2-week period. Patient denies this to me and maintains that while he does
have some depression he is not suicidal. Crisis consult was ordered, they spoke with the patient as well and he denied suicidal ideation to them. Crisis had long conversation with brother via telephone and brother ultimately decided to not pursue
a 302. Pending CT scan results and disposition
Patient Management
Social determinants of health affecting care: Living situation, Poor outpatient follow-up and Poor social support
Escalation/DeEscalation of care consider admission/obs:
Patient CT scan is highly suggestive of a malignant process. I discussed these results with the patient and he ultimately did not feel that he would be able to go home as he does not feel that he is able to care for himself. Will observe patient
in the ER overnight with plan for case management consult in the morning to help with disposition planning as well as arrange for outpatient follow-up as patient will likely need biopsy in short period of time to discuss potential treatment options
as well as obtain diagnosis for this suspected malignant complication.
ED Attending Note
-
Portions of this chart may have been created with voice recognition software.� Occasional wrong word or��sound alike� substitutions may have occurred due to the inherent limitations of voice recognition software.
Discharge Plan
Departure
Patient Disposition: Admit
Date of Disposition: 01/01/25
Time of Disposition: 01:33
Presentation/result/management discussed w/ accepting MD/DO: Hospitalist
Discharge Problem:
Mass of left thigh
Interventions
Interventions:
*Risk Screen - Suicide Last Done: 12/31/24 19:50
*General Assessment Last Done: 12/31/24 21:31
*Neglect/Abuse Screening Last Done: 12/31/24 19:50
*ED- Fall Risk Assessment Last Done: 01/01/25 02:59
*ED COVID-19 Vaccine History Last Done: 12/31/24 21:31
*Nursing Disposition Last Done: 01/01/25 02:59
ED-Psychological Assessment Last Done: 12/31/24 21:29
Discharge Date and Time
Discharge Date/Time: 01/01/25 03:14
[2024-12-31 22:11] LABS: ALT (SGPT) 12 U/L (0-50); AST (SGOT) 17 U/L (17-59); Albumin 3.9 g/dl (3.5-5.0); Alkaline Phosphatase 98 U/L (38-126); Blood Urea Nitrogen 25 mg/dl (9-20); Carbon Dioxide 27 mmol/L (22-30); Chloride 106 mmol/L (98-107); Estimated Creatinine Clearance 106 ml/min; Glucose 91 mg/dl (70-99); Potassium 3.6 mmol/L (3.5-5.1); Sodium 140 mmol/L (135-145); Total Bilirubin 1.2 mg/dl (0.2-1.3); Total Protein 6.7 g/dl (6.3-8.2); eGFR > 60.00
[2024-12-31 22:43] VITALS: BP 134/80
[2024-12-31 23:00] VITALS: BP 154/70
--- NOTE | 2024-12-31 23:15 | EDRN ---
Pt.'s brother called ER, told this RN and PA that pt. had vocalized suicidal ideation to his brother, although pt. denied here in ED. Crisis to be consulted.
[2025-01-01] VITALS (10 sets, daily range): BP systolic 67–154; BP diastolic 63–86; PULSE 57; O2SAT 98; BMI 23.2
--- NOTE | 2025-01-01 02:41 | HPS.HSE ---
Family Physician
-
Family Physician: Kory Anglin
Chief Complaint
-
L Thigh Mass
History of Present Illness
Patient is a 69y M with PMH significant for thoracic outlet syndrome who presents to ED complaining of difficulties caring for himself at home. Patient reports poor appetite / PO intake. He notes that he had assistance from family but now lives
alone and is having difficulty caring for himself. Patient has somewhat odd affect and specific details of his history are difficult to obtain. He complains primarily of a large mass on the L thigh. He states that this has been present for about
one month. He states that he did have a fall 3 weeks ago - but he is unable to describe the fall or state whether or not he landed on the L hip.
He notes that the mass has been consistent in size over the past month. It is not tender, but he does have pain with standing / walking.
He denies any fevers / chills. No other areas of pain.
Note that he was seen here in the ED on 10/27 for evaluation of L thigh pain after a fall. An area of swelling was appreciated in the L thigh at that time as well which was presumed to be hematoma given his stated history.
Patient states that he is currently being evaluated by [facility] at [place] for possible Parkinson's disease.
He reports recent changes in affect, gait, etc.
Test results are pending and he states that he has follow-up appt next week.
Medical History
Past Medical History
Past Medical History: Reports Other
Additional Past Medical History:
Thoracic Outlet Syndrome
Possible Parkinsonism
Mitral Regurgitation
Past Surgical History: Reports Other
Additional Past Surgical History:
Left 1st Rib Resection
Bilateral Hernia Repairs
Social History
Tobacco: Former Smoker (Quit smoking 45 years ago.)
Alcohol: None
Drug: None
Family History
Family History: Not pertinent
Allergies / Home Medications
Allergies reflects when Allergies were last updated in [employer].
Home Medications with original date entered in [facility]
Allergy/Medication List:
Allergies
Allergy/AdvReac Type Severity Reaction Status Date / Time
rivaroxaban (From Xarelto) Allergy Hives Verified 12/31/24 19:55
Home Medications
acetaminophen 325 mg tablet (Tylenol) 650 mg PO Q6HPRN PRN mild pain 10/19/23
diazepam 10 mg tablet 10 mg PO HSPRN PRN sleep 10/19/23
Review of Systems
-
History Source: Patient
A 12 point ROS was completed and negative except as noted: Yes
Constitutional: Reports Fatigue; Denies Fever or Chills
EENT: Denies Sore Throat
Respiratory: Denies Cough or Trouble Breathing
Cardiac: Denies Chest Pain or Palpitations
Abdomen/GI: Reports Anorexia; Denies Abdominal Pain, Nausea, Vomiting or Diarrhea
: Denies Dysuria, Frequency or Flank Pain
Musculoskeletal: Reports Joint Pain; Denies Edema
Neurological: Reports Weakness; Denies Dizzy, Headache or Numbness
Psych: Reports Depression; Denies Anxiety
Physical Exam
Vital Signs
Vital Signs
Temp Pulse Resp BP Pulse Ox
98.3 F 63 21 152/74 95
12/31/24 19:50 01/01/25 02:15 01/01/25 02:15 01/01/25 02:00 01/01/25 02:15
Physical Exam
General: Other (69y M in no acute disrtess.)
HEENT: Moist mucous membranes and PERRLA
Respiratory: Clear; No Wheezes, Rales or Rhonchi
Cardiac: S1/S2, Regular Rhythm and Murmur (III/ murmur)
GI: Soft, Non Tender, Non Distended and Normal Bowel Sounds
Musculoskeletal: No Clubbing, No Cyanosis, No Edema and Other (Large, firm, non-tender mass over the proximal / lateral L thigh. No ecchymosis / overlying skin lesions.)
Neuro: AO x 3 and Nonfocal/grossly intact
Laboratory Results
-
12/31/24 21:43
12/31/24 21:43
Laboratory Results
Total Bilirubin 1.2 mg/dl (0.2-1.3) 12/31/24 21:43
AST 17 U/L (17-59) 12/31/24 21:43
ALT 12 U/L (0-50) 12/31/24 21:43
Alkaline Phosphatase 98 U/L (38-126) 12/31/24 21:43
Impression/Plan
-
A/P: Patient is a 69y M with PMH significant for thoracic outlet syndrome and currently being evaluated for possible Parkinson's disease who presents to ED complaining of L thigh mass and difficulty with ADLs.
Left Thigh Mass
- Observe overnight for further evaluation and treatment.
- Imaging suspicious for malignant process.
- Note that this has likely been present since at lat October 2024 as it was appreciated on exam at that time - though patient states only there for about one month.
- IR eval for biopsy for further evaluation.
- PT / OT evals.
- +/- Oncology evaluation pending biopsy results.
Adenopathy / Pancreatic Lesion
- CT pelvis done in the ED also shows evidence of scattered adenopathy.
- Area near the pancreas consistent with either pancreatic mass or adjacent adenopathy.
- Would check CT chest / abdomen with contrast for further evaluation +/- staging.
- Wait [address] as he had IV contrast load this evening for pelvis CT.
Possible Parkinson's Disease
- Evaluation in progress with [facility].
- ? symptoms due to paraneoplastic syndrome, etc.
- Note that patient did have MRI brain with and without contrast on 12/23/24 which was unremarkable.
- Follow-up with [facility] as planned.
Anxiety / Depression
- Patient admittedly depressed re: recent health issues, possible Parkinson's, etc.
- Denies any suicidal ideations to me and ED provider this evening.
- Psych eval.
DVT Prophylaxis: Lovenox
Code Status: Full
[2025-01-01] MEDS: LR 1000 IV ×2 (04:02→13:44)
--- NOTE | 2025-01-01 04:53 | PTCARENOTE ---
pt admitted to rm 319-1. Pt walked w/ x2 assist and cane to bed. Pt states he has been feeling depressed the past two weeks but denies wanting to hurt himself. LR @100mls/hr going into RW. VSS, no c/o pain, and pt aaox3. Placed on bed alarm for
safety. Pt oriented to room, call pina within reach, and plan of care ongoing.
[2025-01-01 07:15] LABS: Hematocrit 39.2 % (39.0-52.0); Hemoglobin 13.5 g/dL (13.0-18.0); Mean Corp Hgb Conc. 34.4 g/dL (33.0-37.0); Mean Corpuscular Hgb 29.2 pg (27.0-31.0); Mean Corpuscular Volume 84.8 fL (80.0-94.0); Mean Platelet Volume 10.6 fL (7.4-10.4); Platelet Count 174 10^3/uL (130-400); Red Blood Cell Count 4.62 10^6/uL (4.70-6.10); White Blood Cell Count 6.7 10^3/uL (4.8-10.8)
[2025-01-01 07:52] LABS: Blood Urea Nitrogen 20 mg/dl (9-20); Calcium 9.5 mg/dl (8.4-10.2); Carbon Dioxide 28 mmol/L (22-30); Chloride 106 mmol/L (98-107); Estimated Creatinine Clearance 106 ml/min; Glucose 87 mg/dl (70-99); Potassium 3.9 mmol/L (3.5-5.1); Sodium 141 mmol/L (135-145); eGFR > 60.00
--- NOTE | 2025-01-01 10:25 | CM ---
Addendum entered by Roxi Vee 01/01/25 12:05:
Per [facility] nursing - call from Luciano Olmstead brother (lives in [place]) who states he is the POA
He faxed POA/Living Will - CM will have it scanned to chart (emailed Jenniffer Abbasi)
Placed copy in chart
Original Note:
Patient seen at bedside
CM role explained
IA completed
CM consult completed-dc planning VN/possible rehab
PT to eval - await rec
Dx: L thigh mass
PMH: thoracic outlet syndrome
Patient lives alone in an apartment on 3rd floor, approx 25 steps to get into the apartment
stated he fell 3 weeks ago at a friend's house carrying boxes
PLOF: independent with cane
DME: Cane
PCP: Kory Anglin
Pharmacy: [facility], [address], [place]
PLAN: Await PT rec, CM to contiue follow for needs
--- NOTE | 2025-01-01 11:50 | W.PN.UPDATE ---
Update Note
Progress Note Update
Patient examined at bedside. Nonbillable note
General: Other (69y M in no acute disrtess.)
HEENT: Moist mucous membranes and PERRLA
Respiratory: Clear; No Wheezes, Rales or Rhonchi
Cardiac: S1/S2, Regular Rhythm and Murmur (III/ murmur)
GI: Soft, Non Tender, Non Distended and Normal Bowel Sounds
Musculoskeletal: No Clubbing, No Cyanosis, No Edema and Other (Large, firm, non-tender mass over the proximal / lateral L thigh. No ecchymosis / overlying skin lesions.)
Neuro: AO x 3 and Nonfocal/grossly intact
Left Thigh Mass
- Imaging suspicious for malignant process.
- Note that this has likely been present since at lat October 2024 as it was appreciated on exam at that time - though patient states only there for about one month.
- IR eval for biopsy for further evaluation.
- PT / OT evals.
- +/- Oncology evaluation pending biopsy results.
Adenopathy / Pancreatic Lesion
- CT pelvis done in the ED also shows evidence of scattered adenopathy.
- Area near the pancreas consistent with either pancreatic mass or adjacent adenopathy.
- Would check CT chest / abdomen with contrast for further evaluation +/- staging.
- Wait [address] as he had IV contrast load this evening for pelvis CT.
Possible Parkinson's Disease
- Evaluation in progress with [facility].
- ? symptoms due to paraneoplastic syndrome, etc.
- Note that patient did have MRI brain with and without contrast on 12/23/24 which was unremarkable.
- Follow-up with [facility] as planned.
Anxiety / Depression
- Patient admittedly depressed re: recent health issues, possible Parkinson's, etc.
- Denies any suicidal ideations at this time
- Psych eval.
suspected BPH
Urinary incontinence, check postvoid residual
DVT Prophylaxis: Lovenox
Code Status: Full
--- NOTE | 2025-01-01 11:57 | CON.MD ---
Consultation - Medical
-
PATIENT SEEN CHART REVIEWED. DISCUSSED WITH NURSING. THIS CONSULT IS DONE ON JANUARY 01 2025 (TODAY). THE PATIENT IS A 69 YO MALE WHO COMES TO W C.O THIGH MASS WHICH HE NOTED AFTER FALLING. THIS OCCURRED ABOUT THREE WEEKS AGO. APPARENTLY THE THIGH
MASS WAS NOTED IN THIS RECORD IN OCTOBER . THE PATIENT ALSO C.O DEC APPETITE AND 23 LBS WEIGHT LOSS, FATIGUE. HE WELL DESCRIBES HEARING LOSS IN HIS RIGHT EAR. NO DX MADE BUT HAS A FOLLOWUP APPT WITH ENT NEXT WEEK. HE WAS SEEING NEURO RE ? PD BUT
SAYS NO CONCLUSION WAS REACHED. HE HAS A TREMOR AND GAIT DISTURBANCE. THE PATIENT ALSO C/O DEPRESSION. HIS BROTHER TOLD G HE HAD SAID HE WANTED TO KILL HIMSELF BY NOT EATING. THE PATIENT SAID THIS IS TRUE. BUT HE ALSO HAD LITTLE OF NO APPETITE
FOR THE PAST MONTH OF SO. HE HAS HAD DEPRESSION FOR YEARS. AT ONE POINT TOLD ME HE WAS NOT GIVEN MEDS THEN LATER SAID HE WAS TAKING 'FLUOXETINE' HE ALSO IS NOTED IN THE RECORD TO BE TAKING VALIIUM 10 MG Q HS FOR SLEEP. HE STRUGGLES TO FALL AND STAY
ASLEEP ENERGY IS POOR. HE DESPITE HIS THOUGHTS RE STARVING SELF TO WOULD NOT ACTIVELY HURT SELF AT PRESENT. HE WANTS TO KNOW WHAT IS WRONG WITH HIM PHYSICALLY. NOTHING TO SUGGEST PSYCHOSIS OR BIPOLAR. PATIENT DOES NOT FEEL CURRENT PSYCH MEDS
HAVE BEEN HELPFUL WITH HIS DEPRESSION.
PAST PSYCH HX NO HOSP. HE HAS HAD SOME THERAPY IN THE PAST. NOT RECENTLY. AWARE OF DEPRESSION FOR 'YEARS. PCP PRESCRIBES FOR HIM
MEDICAL PATIENT W HX VALVULAR CARDIAC DISEASE IN THE PAST. CURRENTLY THIGH MASS ABD CAT SHOWS SUSPICION FOR MALIGNANCY. BRAIN MRI MILD ATROPHY NO ACUTE LABS UNREMARKABLE HX GAIT ISSUES, TREMOR ? pd HEARING LOSS ? MEMORY LOSS PATIENT SAYS IN
PAST SEVERAL WEEKS FEELS MEMORY NOT SHARP DOCT CRISTIAN FORD FROM CHART. ALSO HAD RIB REMOVED IN THE PAST OLIVIA
FH NON CONTRIB
SUBSTANCE ABUSE DENIED
SOCIAL DIV NO KIDS ONE BRO IN [place] WHO IS SUPPORTIVE AND ACTUALLY RECENTLY VISITED EXPRESSED CONCERN TO NURSING THAT HE IS SUIICDAL. 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
FAMLIY OR FRIENDS
MSE ALERT AND ORIENTED X 3 NEEDED A HINT TO RECALL WHO IS PRESIDENT. 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 MOOD IS DEPRESSED AFFECT CONSTRICTED BUT PATIENT WAS
VERY COOPERATIVE AND PLEASANT. INSIGHT JUDGMENT FAIR
DX UNSPECIFIED DEPRESSION R.O COGNITIVE ISSUES
PLAN NEED FIRST TO RULE OUT SERIOUS MEDICAL ILLNESS WHICH SEEMS LIKELY TO BE PRESENT. PROZAC HAS NOT BEEN VERY HELPFUL ALTHOUGH PATIENT SAYS HE IS TAKING IT. WOULD CUT BACK FROM 40 MG TO 20 MG AND DC IN SEVEN DAYS OR SO POSSIBLY. ADD REMERON 7.5
MG Q HS FOR DEPRESSION SLEEP AND APPETITE. WOULD TAPER VALIUM USING ATIVAN START WITH O.5 MG FOR SEVEN DAYS THEN DC. PATIENT IS AT THIS POINT not GOING TO HARM SELF HERE. NEED TO CONSIDER WHETHER PSYCH HOSP NECESSARY ONCE MEDICAL CONDITION
ELUCIDATED AND TREATMENT RECS HAVE BEEN MADE FOR MEDICAL CHECK THYROID B12 FOLATE WILL FOLLOW
--- NOTE | 2025-01-01 13:52 | PTCARENOTE ---
This nurse received call from pt's brother Luciano martins AM. States that they live in [place] and don't get to see pt often but they are worried about suicidal ideation with pt. Brother states that him and his repeatedly took pt to psychologists where
he states he admitted to having a 'plan' of suicide carried out by not eating for 20 days and starving himself. Psychologists recommended that brother take pt to ER and pt refused adamantly. Upon assessment of nurses and staff here since admission,
pt denies suicidal ideation at this time. States that he does have a history of depression mixed with some unknowns in his health history at this time. Pt followed and assessed by Psych for evaluation. Plan of care ongoing.
[2025-01-01] MEDS: LOVENOX 40 MG SC (17:26)
[2025-01-01] MEDS: REMERON 7.5 MG PO (22:07)
[2025-01-01] MEDS: ATIVAN 0.5 MG PO (22:07)
[2025-01-02] MEDS: LR 1000 IV ×3 (02:45→22:33)
[2025-01-02 03:08] VITALS: BMI 23.3
[2025-01-02 06:32] LABS: % Eosinophils 2.8 % (0-6); % Immature Granulocytes 0.3 % (0-0.5); % Lymphocytes 18.8 % (20.5-51.1); % Monocytes 19.3 % (1.7-9.3); % Neutrophils 57.8 % (42.2-75.2); Absolute Basophils 0.1 10^3/uL (0-0.2); Absolute Eosinophils 0.2 10^3/uL (0-0.7); Absolute Lymphocytes 1.1 10^3/uL (1.2-3.4); Absolute Monocytes 1.2 10^3/uL (0.1-0.6); Absolute Neutrophils 3.5 10^3/uL (1.4-6.5); Hemoglobin 13.1 g/dL (13.0-18.0); Mean Corp Hgb Conc. 32.8 g/dL (33.0-37.0); Mean Corpuscular Hgb 28.6 pg (27.0-31.0); Mean Corpuscular Volume 87.3 fL (80.0-94.0); Mean Platelet Volume 10.4 fL (7.4-10.4); Nucleated Red Blood Cells % 0 % (-); Platelet Count 168 10^3/uL (130-400); Red Blood Cell Count 4.58 10^6/uL (4.70-6.10); White Blood Cell Count 6.1 10^3/uL (4.8-10.8)
[2025-01-02 07:06] LABS: ALT (SGPT) 10 U/L (0-50); AST (SGOT) 14 U/L (17-59); Albumin 3.2 g/dl (3.5-5.0); Alkaline Phosphatase 99 U/L (38-126); Blood Urea Nitrogen 16 mg/dl (9-20); Calcium 9.5 mg/dl (8.4-10.2); Carbon Dioxide 27 mmol/L (22-30); Chloride 109 mmol/L (98-107); Estimated Creatinine Clearance 106 ml/min; Glucose 84 mg/dl (70-99); Sodium 143 mmol/L (135-145); Total Protein 5.7 g/dl (6.3-8.2); eGFR > 60.00
[2025-01-02 07:37] LABS: TSH Reflex To Free T4 1.91 uIU/ml (0.47-4.68)
[2025-01-02 07:46] VITALS: BP 137/72
[2025-01-02 08:12] LABS: Vitamin B12 510 pg/ml (239-931)
[2025-01-02 09:31] VITALS: BP 158/66
[2025-01-02 09:37] VITALS: BP 158/66; PULSE 60; O2SAT 98
[2025-01-02] MEDS: PROZAC 20 MG PO (09:53)
--- NOTE | 2025-01-02 12:14 | W.PN.HOSP.TC ---
Today's Communication/Plan
-
Monitor vital signs see plan
Oncology evaluation
Awaiting biopsy results
PT
Assessment / Plan
Assessment / Plan
General: Other (69y M in no acute disrtess.)
HEENT: Moist mucous membranes and PERRLA
Respiratory: Clear; No Wheezes, Rales or Rhonchi
Cardiac: S1/S2, Regular Rhythm and Murmur (III/ murmur)
GI: Soft, Non Tender, Non Distended and Normal Bowel Sounds
Musculoskeletal: No Clubbing, No Cyanosis, No Edema and Other (Large, firm, non-tender mass over the proximal / lateral L thigh. No ecchymosis / overlying skin lesions.)
Neuro: AO x 3 and Nonfocal/grossly intact
Left Thigh Mass
- Imaging suspicious for malignant process.
- Note that this has likely been present since at lat October 2024 as it was appreciated on exam at that time - though patient states only there for about one month.
- Status post IR biopsy 01/01, follow results
- PT / OT evals.
CT chest/abdomen with multiple pulmonary nodule consistent with metastatic disease, unclear if there is a lymph node or pancreatic mass from CT abdomen. per radiology appears more like lymph node
Oncology evaluation
Adenopathy / Pancreatic Lesion
- CT pelvis done in the ED also shows evidence of scattered adenopathy.
- Area near the pancreas consistent with either pancreatic mass or adjacent adenopathy.
Possible Parkinson's Disease
- Evaluation in progress with [facility].
- ? symptoms due to paraneoplastic syndrome, etc.
- Note that patient did have MRI brain with and without contrast on 12/23/24 which was unremarkable.
- Follow-up with [facility] as planned.
Anxiety / Depression
- Patient admittedly depressed re: recent health issues, possible Parkinson's, etc.
- Denies any suicidal ideations at this time
- Psych following
Now on Prozac, mirtazapine and Ativan
suspected BPH
Urinary incontinence, post void residual wnl
DVT Prophylaxis: Lovenox
Code Status: Full
Anticipated Discharge: 24 - 48 hours
Subjective/Interval History
-
Date of Service: January 02, 2025
denies nausea
Objective Data
-
Labs:
Laboratory Results
01/02/25
06:04
WBC 6.1
Hgb 13.1
Hct 40.0
Plt Count 168
Sodium 143
Potassium 4.0
Chloride 109 H
Carbon Dioxide 27
BUN 16
Creatinine 0.7
Glucose 84
Calcium 9.5
Total Bilirubin 1.0
AST 14 L
ALT 10
Alkaline Phosphatase 99
Vital Signs:
Vital Signs
Temp Pulse Resp BP Pulse Ox
98.0 F 53 16 137/72 98
01/02/25 07:46 01/02/25 07:46 01/02/25 07:46 01/02/25 07:46 01/02/25 07:46
I&O
01/01/25 01/02/25 01/03/25
06:59 06:59 06:59
Intake Total 480 / 480
Output Total 775 / 775
Balance -295 / -295
[2025-01-02 12:34] LABS: Urine Albumin Negative (Neg - Trace); Urine Bilirubin Negative (Negative); Urine Character Clear (Clear); Urine Color Yellow; Urine Glucose Negative (Negative); Urine Ketone Negative (Negative); Urine Leukocyte Negative (Negative); Urine Nitrite Negative (Negative); Urine Occult Blood Negative (Negative); Urine Specific Gravity 1.005 (<1.030); Urine Urobilinogen 2+ (Neg - 1+)
--- NOTE | 2025-01-02 12:34 | CM ---
Patient seen at bedside
PT rec SNF-patient agreeable-options/packet given to patient
spoke with POA brother Luciano & updated, resources for private cg also given
brother said may possibly move him to [place] in future
CM will also follow psychiatry notes
referrals entered in [facility] for [facility], [facility]
PLAN: PT rec SNF, pending bed availability when medically stable
--- NOTE | 2025-01-02 13:54 | CON.ONC ---
Documented by User: Marj Alberto MD, Resident 01/02/25 14:40
Impression
Impression
# Left Thigh Mass
- Imaging shows large enhancing heterogeneous macrolobulated mass of the left anterior thigh, suspicious for malignant process.
- Status post US-guided biopsy by IR. Awaiting pathology results to confirm diagnosis.
- Recommend follow-up with oncology in next 1-2 weeks as OP after biopsy results are back.
- PT / OT
# Cognitive dysfunction
- Brain MRI on 12/23/24 was unremarkable.
- TSH, vit B12 normal. No apparent signs of infection.
- Workup pending at [facility] to r/o Parkinson's disease- Given patient's condition and lack of family/friend support, it is unlikely he will follow-up. Recommend neurology consult to for early-onset dementia workup.
- Psychiatry following.
Anxiety / Depression
- Denies any suicidal ideations at this time.
- Management per psych
DVT Prophylaxis: Lovenox
Code Status: Full
Plan
Plan
Recommend follow-up with oncology as OP in next 1-2 weeks after biopsy results are back.
Neurology consult to for early-onset dementia workup.
Patient History
History of Present Illness
Patient is a 69y M who presents after noticing large mass on the L thigh from about 3-4 weeks ago that seemed to be growing. Patient mentions he noticed the mass after falling 3 weeks ago due to feeling week and gait imbalance. Also complains of
poor appetite, recent memory issues and having difficulty caring for himself at home. 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 Upon review of records, he was admitted on 10/27 with L hip swelling
following a fall. Hip x-ray was unremarkable. No pelvis CT performed at that time.
Pelvis CT obtained in the ED this admission (12/31) showed large enhancing heterogeneous macrolobulated mass of the left anterior thigh, measuring roughly 11.7 x 8.5 x 8.2 cm. Also, homogeneously enhancing soft tissue mass anterior to the aorta in
the upper abdomen was seen suggesting pancreatic mass vs abnormal lymphadenopathy (measures 2.1 cm) in addition to abnormal left external iliac chain lymphadenopathy.Moderate prostate hypertrophy. Chest/abdomen CT showed numerous nodules in both
lungs consistent with metastatic disease.
Due to suspicion of malignancy, IR was consulted to perform ultrasound-guided biopsy of left thigh mass. Ultrasound showed some areas which were solid and cystic, with solid components which were nearly isoechoic with adjacent soft tissues. Other
areas of hypoechogenicity with less pronounced cystic components were seen. Satisfactory sample was obtained and sent for pathology.
Past-Medical/Surgical History
thoracic outlet syndrome, undergoing workup for possible Parkinson's disease at [facility], right ear hearing loss
Patient Medication
�Medication �Instructions �Recorded �Confirmed �Last Taken �Type
acetaminophen 325 mg tablet 650 mg PO Q6HPRN PRN mild pain 10/19/23 01/01/25 10/19/23 History
(Tylenol)
diazepam 10 mg tablet 10 mg PO HSPRN PRN sleep 10/19/23 01/01/25 10/18/23 History
Active Medications
Generic Name Dose Route Start Last Admin
Trade Name Freq PRN Reason Stop Dose Admin
Acetaminophen 650 mg 01/01/25 03:24
Acetaminophen 325 Mg Tablet PO 01/29/25 03:23
Q4HPRN PRN
Mild Pain / Temp > 101
Enoxaparin Sodium 40 mg 01/01/25 18:00 01/01/25 17:26
Enoxaparin Sodium 40 Mg/0.4 Ml Syringe SC 01/29/25 17:59 40 mg
QPM BERNADRINO Administration
Fluoxetine HCl 20 mg 01/02/25 08:00 01/02/25 09:53
Fluoxetine 20 Mg Capsule PO 01/30/25 07:59 20 mg
DAILY BERNARDINO Administration
Lactated Ringer's 1,000 mls @ 100 mls/hr 01/01/25 03:24 01/02/25 09:54
Lr IV 1,000 mls
.Q10H BERNARDINO Administration
Lorazepam 0.5 mg 01/01/25 22:00 01/01/25 22:07
Lorazepam 0.5 Mg Tablet PO 01/08/25 21:59 0.5 mg
HS BERNARDINO Administration
Mirtazapine 7.5 mg 01/01/25 22:00 01/01/25 22:07
Mirtazapine 7.5 Mg Regular Release Tablet PO 01/29/25 21:59 7.5 mg
HS BERNARDINO Administration
Sodium Chloride 0 flush 01/01/25 03:00
Sodium Chloride 0.9% (Flush) Syringe IV 01/29/25 02:59
PER PROTOCOL BERNARDINO
Review of Systems
-
Unable to obtain full review of systems at this time due to: Other (Patient does have degrees of dementia)
History Source: Patient
Constitutional: Reports Weight Loss, No Appetite and Weakness
EENT: Reports Hearing Loss
GI: Denies Abdominal Pain
Neuro: Reports Weakness and Ataxia
Psych: Reports Depressed
Physical Exam
-
General: No Apparent Distress
HEENT: Moist Mucous Membranes
Cardiology: Normal Sinus Rhythm, S1 and S2
Pulmonary: Clear
GI: Soft and Normal Bowel Sounds; Negative Distended
Musculoskeletal: No Clubbing, No Cyanosis, No Edema and Other (Mass on left thigh s/p US-guided biopsy)
Extremities: Pulses Present
Neurology: No Lateralizing Symptoms and Other (has word-finding difficulties)
Skin: Warm, Dry and Rash
Hematologic / Lymphatic: No Lymphadenopathy
Labs
Lab Results
WBC 6.1 10^3/uL (4.8-10.8) 01/02/25 06:04
RBC 4.58 10^6/uL (4.70-6.10) L 01/02/25 06:04
Hgb 13.1 g/dL (13.0-18.0) 01/02/25 06:04
Hct 40.0 % (39.0-52.0) 01/02/25 06:04
MCV 87.3 fL (80.0-94.0) 01/02/25 06:04
MCH 28.6 pg (27.0-31.0) 01/02/25 06:04
MCHC 32.8 g/dL (33.0-37.0) L 01/02/25 06:04
RDW 13.0 % (11.5-14.5) 01/02/25 06:04
Plt Count 168 10^3/uL (130-400) 01/02/25 06:04
MPV 10.4 fL (7.4-10.4) 01/02/25 06:04
Abs Immat Gran (auto) 0.0 10^3/uL (0-0.05) 01/02/25 06:04
Absolute Neuts (auto) 3.5 10^3/uL (1.4-6.5) 01/02/25 06:04
Absolute Lymphs (auto) 1.1 10^3/uL (1.2-3.4) L 01/02/25 06:04
Absolute Monos (auto) 1.2 10^3/uL (0.1-0.6) H 01/02/25 06:04
Absolute Eos (auto) 0.2 10^3/uL (0-0.7) 01/02/25 06:04
Absolute Basos (auto) 0.1 10^3/uL (0-0.2) 01/02/25 06:04
Immature Gran % 0.3 % (0-0.5) 01/02/25 06:04
Neutrophils % 57.8 % (42.2-75.2) 01/02/25 06:04
Lymphocytes % 18.8 % (20.5-51.1) L 01/02/25 06:04
Monocytes % 19.3 % (1.7-9.3) H 01/02/25 06:04
Eosinophils % 2.8 % (0-6) 01/02/25 06:04
Basophils % 1.0 % (0-2) 01/02/25 06:04
Creatinine 0.7 mg/dL (0.7-1.3) 01/02/25 06:04
Vital Signs
Vital Signs
Temp Pulse Resp BP Pulse Ox
98.0 F 53 16 137/72 98
01/02/25 07:46 01/02/25 07:46 01/02/25 07:46 01/02/25 07:46 01/02/25 07:46

Documented by User: Silas Pereira MD 01/02/25 16:50
Plan
Plan
Recommend follow-up with oncology as OP in next 1-2 weeks after biopsy results are back.
Neurology consult to for early-onset dementia workup.
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 We will see in office 1-2 weeks as pathology returns. I am also concerned about his rather rapid decline in functional status and mentation. No clear explanation, cannot exclude
paraneoplastic, but that is dx of exclusion.
[2025-01-02 15:45] VITALS: BP 154/73
[2025-01-02] MEDS: LOVENOX 40 MG SC (17:13)
[2025-01-02] MEDS: ATIVAN 0.5 MG PO (22:33)
[2025-01-02] MEDS: REMERON 7.5 MG PO (22:33)
[2025-01-02 23:00] VITALS: BP 158/78
[2025-01-03 02:34] VITALS: BMI 23.3
[2025-01-03 06:11] VITALS: BMI 23.3
[2025-01-03 07:00] VITALS: BP 132/74
[2025-01-03] MEDS: LR 1000 IV ×2 (08:19→18:15)
[2025-01-03 08:39] LABS: % Basophils 0.6 % (0-2); % Eosinophils 1.8 % (0-6); % Immature Granulocytes 0.3 % (0-0.5); % Lymphocytes 18.2 % (20.5-51.1); % Monocytes 15.7 % (1.7-9.3); % Neutrophils 63.4 % (42.2-75.2); Absolute Eosinophils 0.1 10^3/uL (0-0.7); Absolute Lymphocytes 1.1 10^3/uL (1.2-3.4); Hematocrit 44.5 % (39.0-52.0); Hemoglobin 14.5 g/dL (13.0-18.0); Mean Corp Hgb Conc. 32.6 g/dL (33.0-37.0); Mean Corpuscular Hgb 28.5 pg (27.0-31.0); Mean Corpuscular Volume 87.6 fL (80.0-94.0); Mean Platelet Volume 11.2 fL (7.4-10.4); Nucleated Red Blood Cells % 0 % (-); Platelet Count 197 10^3/uL (130-400); Red Blood Cell Count 5.08 10^6/uL (4.70-6.10); Red Cell Dist. Width 13.1 % (11.5-14.5); White Blood Cell Count 6.3 10^3/uL (4.8-10.8)
--- NOTE | 2025-01-03 08:56 | W.PN.ONC ---
Addendum entered and electronically signed by Pedro Overton DO 01/14/25 16:56:
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
Original Note:
Today's Communication / Plan
-
Await pathology
Neurology consult to for early-onset dementia workup.
Impression
Impression
Left Thigh Mass
Anxiety / Depression
Subjective/Objective
Subjective/Objective
No new complaints. Patient denies significant pain. No increased swelling at the biopsy site.
Vital Signs:
Vital Signs
Temp Pulse Resp BP Pulse Ox
97.8 F 64 18 132/74 97
01/03/25 07:00 01/03/25 07:00 01/03/25 07:00 01/03/25 07:00 01/03/25 07:00
PE: Unchanged, mild ecchymosis at the site of the biopsy. Mild ecchymosis at the biopsy site
Lab Results:
Laboratory Data
WBC 6.3 10^3/uL (4.8-10.8) 01/03/25 06:34
Hgb 14.5 g/dL (13.0-18.0) 01/03/25 06:34
Plt Count 197 10^3/uL (130-400) 01/03/25 06:34
eGFR > 60.00 01/02/25 06:04
[2025-01-03 09:12] LABS: ALT (SGPT) 10 U/L (0-50); AST (SGOT) 18 U/L (17-59); Albumin 3.7 g/dl (3.5-5.0); Alkaline Phosphatase 105 U/L (38-126); Blood Urea Nitrogen 16 mg/dl (9-20); Calcium 9.3 mg/dl (8.4-10.2); Carbon Dioxide 28 mmol/L (22-30); Chloride 107 mmol/L (98-107); Estimated Creatinine Clearance 106 ml/min; Glucose 76 mg/dl (70-99); Potassium 4.1 mmol/L (3.5-5.1); Sodium 140 mmol/L (135-145); Total Bilirubin 1.3 mg/dl (0.2-1.3); Total Protein 6.3 g/dl (6.3-8.2); eGFR > 60.00
[2025-01-03] MEDS: PROZAC 20 MG PO (09:18)
--- NOTE | 2025-01-03 11:14 | CM ---
Per all scripts; no bed at [facility], no responses from [facility] at this time or [facility]. CM will continue to follow for discharge planning needs.
Plan; SNF pending acceptance/bed availability.
--- NOTE | 2025-01-03 11:18 | W.PN.HOSP.TC ---
Today's Communication/Plan
-
monitor vitals
see plan
Awaiting biopsy results
Discharge pending SNF
Patient should follow-up with oncology outpatient
Discussed with brother over the phone
neurology evaluation outpatient; recent MRI without acute findings; mild atrophy
Assessment / Plan
Assessment / Plan
General: Other (69y M in no acute disrtess.)
HEENT: Moist mucous membranes and PERRLA
Respiratory: Clear; No Wheezes, Rales or Rhonchi
Cardiac: S1/S2, Regular Rhythm and Murmur (III/ murmur)
GI: Soft, Non Tender, Non Distended and Normal Bowel Sounds
Musculoskeletal: No Edema and Other (Large, firm, non-tender mass over the proximal / lateral L thigh. No ecchymosis / overlying skin lesions.)
Neuro: AO x 3 and Nonfocal/grossly intact
Left Thigh Mass
- Imaging suspicious for malignant process.
- Note that this has likely been present since at lat October 2024 as it was appreciated on exam at that time - though patient states only there for about one month.
- Status post IR biopsy 01/01, follow results
- PT / OT evals rec rehab
CT chest/abdomen with multiple pulmonary nodule consistent with metastatic disease, unclear if there is a lymph node or pancreatic mass from CT abdomen. per radiology appears more like lymph node
Oncology following; patient will follow-up with them outpatient
Adenopathy / Pancreatic Lesion
- CT pelvis done in the ED also shows evidence of scattered adenopathy.
- Area near the pancreas consistent with either pancreatic mass or adjacent adenopathy.
Possible Parkinson's Disease
- Evaluation in progress with [facility].
- ? symptoms due to paraneoplastic syndrome, etc.
- Note that patient did have MRI brain with and without contrast on 12/23/24 which was unremarkable.
- Follow-up with [facility] as planned. do not see any inpatient need to neurology evaluation
Anxiety / Depression
- Patient admittedly depressed re: recent health issues, possible Parkinson's, etc.
- Denies any suicidal ideations at this time
- Psych following
Now on Prozac, mirtazapine and Ativan
suspected BPH
Urinary incontinence, post void residual wnl
DVT Prophylaxis: Lovenox
Code Status: Full
CM for SNF
Anticipated Discharge: Within 24 hours
Subjective/Interval History
-
Date of Service: January 03, 2025
denies pain
Objective Data
-
Labs:
Laboratory Results
01/03/25
06:34
WBC 6.3
Hgb 14.5
Hct 44.5
Plt Count 197
Sodium 140
Potassium 4.1
Chloride 107
Carbon Dioxide 28
BUN 16
Creatinine 0.7
Glucose 76
Calcium 9.3
Total Bilirubin 1.3
AST 18
ALT 10
Alkaline Phosphatase 105
Vital Signs:
Vital Signs
Temp Pulse Resp BP Pulse Ox
97.8 F 64 18 132/74 97
01/03/25 07:00 01/03/25 07:00 01/03/25 07:00 01/03/25 07:00 01/03/25 07:00
I&O
01/02/25 01/03/25 01/04/25
06:59 06:59 06:59
Intake Total 480 / 480 960 / 960
Output Total 775 / 775 875 / 875
Balance -295 / -295 85 / 85
--- NOTE | 2025-01-03 11:49 | W.PN.UPDATE ---
Update Note
Progress Note Update
Pt seen, chart reviewed. Pt resting in bed, alert, oriented, calm, cooperative, making good eye contact. Affect is constricted/mildly detached. Speech/thought are coherent/clear. Pt denies suicidal ideation when asked about concerns raised by
his brother. Pt taking Prozac 20 mg daily, Remeron 7.5 mg, Ativan 0.5 mg HS, denies side effects. Oncology is awaiting pathology on leg mass bx. Pt noted to by in process of eval by [facility] for possible Parkinson's.
Imp: Unspecified Depressive d/o, pt consistently denying suicidal ideation
Rec: continue current antidepressant/antianxiety medications
Outpatient med mgt when medically cleared/discharged
Will follow
[2025-01-03] MEDS: TYLENOL 650 MG PO (14:31)
[2025-01-03 15:00] VITALS: BP 123/56
[2025-01-03] MEDS: LOVENOX 40 MG SC (18:16)
[2025-01-03] MEDS: ATIVAN 0.5 MG PO (22:19)
[2025-01-03] MEDS: REMERON 7.5 MG PO (22:20)
[2025-01-03 23:10] VITALS: BP 134/64
[2025-01-04 06:00] VITALS: BMI 23.5
[2025-01-04 07:30] VITALS: BP 114/52
[2025-01-04 07:58] LABS: % Basophils 0.4 % (0-2); % Eosinophils 2.6 % (0-6); % Immature Granulocytes 0.3 % (0-0.5); % Lymphocytes 13.8 % (20.5-51.1); % Monocytes 18.7 % (1.7-9.3); % Neutrophils 64.2 % (42.2-75.2); Absolute Eosinophils 0.2 10^3/uL (0-0.7); Absolute Monocytes 1.3 10^3/uL (0.1-0.6); Absolute Neutrophils 4.5 10^3/uL (1.4-6.5); Hematocrit 37.9 % (39.0-52.0); Hemoglobin 12.5 g/dL (13.0-18.0); Mean Corpuscular Hgb 28.5 pg (27.0-31.0); Mean Corpuscular Volume 86.3 fL (80.0-94.0); Mean Platelet Volume 11.2 fL (7.4-10.4); Nucleated Red Blood Cells % 0 % (-); Platelet Count 164 10^3/uL (130-400); Red Blood Cell Count 4.39 10^6/uL (4.70-6.10); White Blood Cell Count 6.9 10^3/uL (4.8-10.8)
[2025-01-04 08:15] LABS: ALT (SGPT) < 10 U/L (0-50); AST (SGOT) 16 U/L (17-59); Alkaline Phosphatase 91 U/L (38-126); Blood Urea Nitrogen 14 mg/dl (9-20); Calcium 8.9 mg/dl (8.4-10.2); Carbon Dioxide 22 mmol/L (22-30); Chloride 108 mmol/L (98-107); Estimated Creatinine Clearance 124 ml/min; Glucose 93 mg/dl (70-99); Potassium 3.8 mmol/L (3.5-5.1); Sodium 137 mmol/L (135-145); Total Bilirubin 1.2 mg/dl (0.2-1.3); Total Protein 5.5 g/dl (6.3-8.2); eGFR > 60.00
[2025-01-04] MEDS: PROZAC 20 MG PO (08:15)
--- NOTE | 2025-01-04 10:50 | W.PN.HOSP.TC ---
Today's Communication/Plan
-
monitor vitals
see plan
awaiting biopsy; oncology follow-up outpatient
dc pending placement
Assessment / Plan
Assessment / Plan
General: no acute distress
HEENT: Moist mucous membranes and PERRLA
Respiratory: Clear; No Wheezes, Rales or Rhonchi
Cardiac: S1/S2, Regular Rhythm and Murmur (III/ murmur)
GI: Soft, Non Tender, Non Distended and Normal Bowel Sounds
Musculoskeletal: No Edema and Other (Large, firm, non-tender mass over the proximal / lateral L thigh)
Neuro: AO x 3 and Nonfocal/grossly intact
Left Thigh Mass
- Imaging suspicious for malignant process.
- Note that this has likely been present since at lat October 2024 as it was appreciated on exam at that time - though patient states only there for about one month.
- Status post IR biopsy 01/01, follow results
- PT / OT evals rec rehab
CT chest/abdomen with multiple pulmonary nodule consistent with metastatic disease, unclear if there is a lymph node or pancreatic mass from CT abdomen. per radiology appears more like lymph node
Oncology following; patient will follow-up with them outpatient
Adenopathy / Pancreatic Lesion
- CT pelvis done in the ED also shows evidence of scattered adenopathy.
- Area near the pancreas consistent with either pancreatic mass or adjacent adenopathy.
Possible Parkinson's Disease
- Evaluation in progress with [facility].
- ? symptoms due to paraneoplastic syndrome, etc.
- Note that patient did have MRI brain with and without contrast on 12/23/24 which was unremarkable.
- Follow-up with [facility] as planned. do not see any inpatient need to neurology evaluation
Anxiety / Depression
- Patient admittedly depressed re: recent health issues, possible Parkinson's, etc.
- Denies any suicidal ideations at this time
- Psych following; does not appear the need of psych placement at this time
Now on Prozac, mirtazapine and Ativan
suspected BPH
Urinary incontinence, post void residual wnl
DVT Prophylaxis: Lovenox
Code Status: Full
CM for SNF
Anticipated Discharge: Today
Subjective/Interval History
-
Date of Service: January 04, 2025
denies nausea
Objective Data
-
Labs:
Laboratory Results
01/04/25
06:39
WBC 6.9
Hgb 12.5 L
Hct 37.9 L
Plt Count 164
Sodium 137
Potassium 3.8
Chloride 108 H
Carbon Dioxide 22
BUN 14
Creatinine 0.6 L
Glucose 93
Calcium 8.9
Total Bilirubin 1.2
AST 16 L
ALT < 10
Alkaline Phosphatase 91
Vital Signs:
Vital Signs
Temp Pulse Resp BP Pulse Ox
99.0 F 62 14 114/52 97
01/04/25 07:30 01/04/25 07:30 01/04/25 07:30 01/04/25 07:30 01/04/25 07:30
I&O
01/03/25 01/04/25 01/05/25
06:59 06:59 06:59
Intake Total 960 / 960 1380 / 1380
Output Total 875 / 875 2750 / 2750
Balance 85 / 85 -1370 / -1370
--- NOTE | 2025-01-04 11:30 | W.PN.UPDATE ---
Addendum entered and electronically signed by Paulo Aleman MD 01/04/25 12:04:
b12 tsh ok. folate on the very low side. will order folate one mg q day. low folate can contribute to depression.
Original Note:
Update Note
Progress Note Update
patient seen chart reviewed. spoke with nursing. mr foster was pleasantly interactive. it was my impression that he IS s/w cognitively impaired but did not screening yet at this point for dementia as he has enough going on physically and i don't
think this would be a great time for that. . he admits to anxiety which is appropriate about the bx result of which are not yet in but his affect almost seems rather detached. we talked about the changes made in his psych meds and the ones i plan
to make. will increase remeron to 15 mg at hs. says it helped with appetite and sleep. he is not actively suicidal at this point although that could change with bad news on the biopsy. he thinks sometimes about going to live with his brother in
[place]. brother is his only support. psych will continue to follow
--- NOTE | 2025-01-04 12:45 | CM ---
Addendum entered by Clarita De La Cruz RN 01/04/25 12:57:
Notified Sammi at [facility] that family decided to consider other SNF options.
Original Note:
Patient with Dx Left Thigh Mass, Adenopathy / Pancreatic Lesion, Possible Parkinson's Disease. Room air. Per nurse; forgetful. PT/OT recommend skilled rehab.
SNF referrals reviewed; [facility] can accept. [facility] and [facility] not [facility]. [facility] no available bed.
Met with patient and spoke wtih his brother Luciano, POA & daughter in law from [facility] by phone; patient deferring to his brother for SNF choice. Provided update to patient and Luciano re; SNF responses and provided [facility] ratings - Luciano does not want
[facility]. Luciano would like to wait until tomorrow and see if [facility] or [facility] can accept.
Luciano says he was in shock yesterday with patient's possible diagnosis and needed to process that information. He has questions about workup for cancer and cardiac workup and wishes to talk with MD today ---> message sent to Dr Concepcion.
Plan follow up SNF referrals tomorrow and contact POA with SNF choices.
[2025-01-04] MEDS: FOLVITE 1 MG PO (13:39)
[2025-01-04 15:33] VITALS: BP 141/66
[2025-01-04] MEDS: LOVENOX 40 MG SC (17:16)
[2025-01-04 17:22] VITALS: BP 158/66; PULSE 60; O2SAT 98
[2025-01-04] MEDS: TYLENOL 650 MG PO (17:23)
[2025-01-04 23:00] VITALS: BP 119/63
[2025-01-04] MEDS: REMERON 7.5 MG PO (23:17)
[2025-01-04] MEDS: ATIVAN 0.5 MG PO (23:17)
[2025-01-04] MEDS: NON-FORMULARY ITEM 1 UNIT PO (23:18)
[2025-01-05 03:46] VITALS: BMI 23.7
[2025-01-05 07:19] LABS: % Basophils 0.6 % (0-2); % Eosinophils 4.2 % (0-6); % Immature Granulocytes 0.4 % (0-0.5); % Lymphocytes 14.3 % (20.5-51.1); % Monocytes 17.8 % (1.7-9.3); % Neutrophils 62.7 % (42.2-75.2); Absolute Eosinophils 0.3 10^3/uL (0-0.7); Absolute Monocytes 1.3 10^3/uL (0.1-0.6); Absolute Neutrophils 4.5 10^3/uL (1.4-6.5); Hematocrit 40.1 % (39.0-52.0); Hemoglobin 13.5 g/dL (13.0-18.0); Mean Corp Hgb Conc. 33.7 g/dL (33.0-37.0); Mean Corpuscular Hgb 28.7 pg (27.0-31.0); Mean Corpuscular Volume 85.1 fL (80.0-94.0); Mean Platelet Volume 10.6 fL (7.4-10.4); Nucleated Red Blood Cells % 0 % (-); Platelet Count 163 10^3/uL (130-400); Red Blood Cell Count 4.71 10^6/uL (4.70-6.10); Red Cell Dist. Width 13.1 % (11.5-14.5); White Blood Cell Count 7.1 10^3/uL (4.8-10.8)
[2025-01-05 07:45] VITALS: BP 126/63
[2025-01-05 08:02] LABS: ALT (SGPT) < 10 U/L (0-50); AST (SGOT) 18 U/L (17-59); Albumin 3.3 g/dl (3.5-5.0); Alkaline Phosphatase 93 U/L (38-126); Blood Urea Nitrogen 15 mg/dl (9-20); Carbon Dioxide 27 mmol/L (22-30); Chloride 105 mmol/L (98-107); Estimated Creatinine Clearance 106 ml/min; Glucose 91 mg/dl (70-99); Sodium 139 mmol/L (135-145); Total Bilirubin 1.2 mg/dl (0.2-1.3); Total Protein 5.9 g/dl (6.3-8.2); eGFR > 60.00
[2025-01-05] MEDS: FOLVITE 1 MG PO (08:03)
[2025-01-05] MEDS: PROZAC 20 MG PO (08:03)
[2025-01-05] MEDS: NON-FORMULARY ITEM 1 UNIT PO (08:03)
--- NOTE | 2025-01-05 08:29 | PN.CDI ---
CDI
- -
CDI:
Physician Documentation Request
Admit Date: 01/01/25 11:49
Dear Doctor,
Please review the following and provide your response in the progress notes.
Clinical Indicators:
Pt admitted with Left Thigh Mass with Imaging suspicious for malignant process.
Nutrition note 01/02,' Pt meets ASPEN/AND criteria of unintentional weight loss 7.5 % in 3 months </= 75% estimated energy needs ,greater than or equal to 1 month... CBW: 171 lbs 9.6 oz BMI 23.3 normal range (01/02), Pts weight previous admission
listed s 186 lbs 10/02 reflective of a 15 lb (8%) in three months. Per previous RD note pt meets AND/ASPEN criteria for moderate protein calorie malnutrition of chronic illness. Encourage increased intakes of meals as tolerated. RD to monitor po
intakes and need for nutritional supplement...'
Based on the above information and your assessment, which of the following most accurately represents the patient's nutritional status?
Moderate protein calorie malnutrition
Other (please specify)
Kirkman Criteria (ACP Hospitalist 2017)
2 or more criteria must be present for either
non severe or severe malnutrition
Note that the criteria differs related to the
presence of an acute or chronic illness
Acute Illness Chronic Illness
Energy Intake Non Severe: <75% for >7 days Non Severe: <75% for >1 month
Severe: <50% for >5 days Severe: <75% for >1 month
Weight Loss Non Severe: 1-2% over 1 week Non Severe: 5% over 1 month
5% over 1 month 7.5% over 3 months
7.5% over 3 months 10% over 6 months
1 year N/A 20% over 1 year
Severe: >2% over 1 week Severe: >5% over 1 month
>5% over 1 month >7.5% over 3 months
>7.5% over 3 months >10% over 6 months
1 year N/A >20% over 1 year
Body Fat Non Severe: Mild Decrease Non Severe: Mild Loss
Severe: Moderate Decrease Severe: Severe Loss
Muscle Mass Non Severe: Mild Decrease Non Severe: Mild Loss
Severe: Moderate Decrease Severe: Severe Loss
Fluid Accumulation Non Severe: Mild Accumulation Non Severe: Mild Accumulation
Severe: Moderate to severe Severe: Moderate to severe
accumulation accumulation
Reduced Shirt Finisher Strength Non Severe: N/A Non Severe: N/A
Severe: Measurably reduced Severe: Measurably reduced
Use of terms such as suspected, likely, concern for, or probable (associated with a specific diagnosis that is being evaluated, monitored, or treated as if it exists) are acceptable and can be coded in the inpatient setting, when documented at the
time of discharge.
Thank you,
Azra Mcelroy RN
CDI Specialist
[place] [facility]
Please use your independent medical judgment in providing your response.
--- NOTE | 2025-01-05 10:32 | W.PN.HOSP.TC ---
Addendum entered and electronically signed by Mahad Concepcion MD 01/05/25 13:45:
Time of discharge 37 minutes
Addendum entered and electronically signed by Mahad Concepcion MD 01/05/25 13:40:
This patient will likely require less than 30 days for [facility] facility services as his symptoms and behaviors are stable.
Original Note:
Today's Communication/Plan
-
Monitor vital signs see plan
Pending placement, shelter case manager aware
Continue with Remeron, Ativan
Continue levodopa carbidopa
Pathology pending, patient will follow-up with oncology outpatient
Assessment / Plan
Assessment / Plan
General: no acute distress
HEENT: Moist mucous membranes and PERRLA
Respiratory: Clear; No Wheezes, Rales or Rhonchi
Cardiac: S1/S2, Regular Rhythm and Murmur
GI: Soft, Non Tender, Non Distended and Normal Bowel Sounds
Musculoskeletal: No Edema and Other (Large, firm, non-tender mass lateral L thigh)
Neuro: AO x 3 and Nonfocal/grossly intact
Left Thigh Mass
- Imaging suspicious for malignant process.
- Note that this has likely been present since at lat October 2024 as it was appreciated on exam at that time - though patient states only there for about one month.
- Status post IR biopsy 01/01, follow results
- PT / OT evals rec rehab
CT chest/abdomen with multiple pulmonary nodule consistent with metastatic disease, unclear if there is a lymph node or pancreatic mass from CT abdomen. per radiology appears more like lymph node
Oncology following; patient will follow-up with them outpatient
Adenopathy / Pancreatic Lesion
- CT pelvis done in the ED also shows evidence of scattered adenopathy.
- Area near the pancreas consistent with either pancreatic mass or adjacent adenopathy.
Possible Parkinson's Disease
- Evaluation in progress with [facility].
- ? symptoms due to paraneoplastic syndrome, etc.
- Note that patient did have MRI brain with and without contrast on 12/23/24 which was unremarkable.
- Follow-up with [facility] as planned. do not see any inpatient need to neurology evaluation
Was started on levodopa carbidopa by neurology, continue
Anxiety / Depression
- Patient admittedly depressed re: recent health issues, possible Parkinson's, etc.
- Denies any suicidal ideations at this time
- Psych following; does not appear the need of psych placement at this time
Now on Prozac, mirtazapine and Ativan, continue with Ativan through 01/07/2025
suspected BPH
Urinary incontinence, post void residual wnl
sx resolved
History of MR
He is scheduled stress echo and echocardiogram outpatient
Moderate protein calorie malnutrition
DVT Prophylaxis: Lovenox
Code Status: Full
CM for SNF
Anticipated Discharge: Today
Subjective/Interval History
-
Date of Service: January 05, 2025
Denies nausea
Objective Data
-
Labs:
Laboratory Results
01/05/25
06:44
WBC 7.1
Hgb 13.5
Hct 40.1
Plt Count 163
Sodium 139
Potassium 4.0
Chloride 105
Carbon Dioxide 27
BUN 15
Creatinine 0.7
Glucose 91
Calcium 9.0
Total Bilirubin 1.2
AST 18
ALT < 10
Alkaline Phosphatase 93
Vital Signs:
Vital Signs
Temp Pulse Resp BP Pulse Ox
97.9 F 62 16 126/63 94
01/05/25 07:45 01/05/25 07:45 01/05/25 07:45 01/05/25 07:45 01/05/25 07:45
I&O
01/04/25 01/05/25 01/06/25
06:59 06:59 06:59
Intake Total 1380 / 1380 1440 / 1440
Output Total 2750 / 2750 1400 / 1400
Balance -1370 / -1370 40 / 40
--- NOTE | 2025-01-05 11:30 | CM ---
Addendum entered by Roxi Vee 01/05/25 13:56:
Spoke with Sammi liaison - [facility] accepted today & has a bed - patient agreeable
[facility] updated - & careport updated
tt Hospitalist regarding adding 30 day exemption in note per Sammi
discussed with Luciano//KIKI - agreeable - also discussed wheelchair van & cost, phone # given to brother
IMM explained & signed. In chart
PLAN: [facility] SNF
Report #: [id number]
Fax #: [phone]
transportation form w/c van
Original Note:
Spoke with brother Luciano SWANSON
additional referrals sent per his request to [facility] & [facility] SNF
PT rec SNF
No pre-auth needed
PLAN: SNF, pending bed availability/acceptance
--- NOTE | 2025-01-05 13:45 | W.DCSUMMARY ---
Discharge Summary
Discharge Data
Date of Admission: 01/01/25
Date of Discharge: 01/05/25
-
Pending Results: Yes
Hospital Course
69-year-old male with possible Parkinson's disease, anxiety/depression, history of mitral regurgitation came to the hospital with ambulatory dysfunction and left thigh mass suspicious for malignancy. Patient was seen by IR who performed IR guided
biopsy. Results of IR biopsy was still pending prior to discharge. Patient was also seen by oncology and was recommended to follow-up with them outpatient. CT chest and abdomen was done which showed multiple pulmonary nodule which was consistent
with possible metastatic disease. Patient also had questionable adenopathy/pancreatic lesion for which CT scan was done. Per radiology it appeared more like lymph node. Patient was also evaluated by physical therapy who recommended SNF. On
admission patient also had suicidal ideation for which patient was seen by psychiatry. Patient symptoms continue to improve over time and he was not suicidal. Per psychiatry patient did not need any psych placement on discharge. Once patient had
placement and it was no inpatient workup needed per oncology, he was then discharged to SNF with instructions to follow-up with all the physicians outpatient and to follow-up with oncology for biopsy results.
Discharge Plan
-
Patient Disposition: Shelter/SNF
Discharge Diagnosis/Procedures: Left thigh mass suspicious for malignancy
Pulmonary nodules likely consistent with metastatic disease
Addendum anti-/pancreatic lesion
Possible Parkinson's disease
Anxiety/depression
Condition: Fair
Diet: Regular
Activity: As tolerated
Driving Restrictions: Not until seen by your Dr
Bathing Restrictions: None
Activity Restrictions/Additional Instructions:
Continue Ativan through 01/07/2025.
Referrals:
Alfa Alston MD [Active, Psychiatry]
Kory Anglin MD [Family Provider, Internal Medicine] - in less than 1 week
Silas Pereira MD [Active, Hematology / Oncology] - in one week
Referral Note: Please follow-up with oncology for biopsy results and further management
Prescriptions:
New
folic acid 1 mg Tablet
1 mg PO DAILY Qty: 0 0RF
fluoxetine 20 mg Capsule
20 mg PO DAILY Qty: 0 0RF
mirtazapine 7.5 mg Tablet
7.5 mg PO HS Qty: 0 0RF
lorazepam 0.5 mg Tablet
0.5 mg PO HS Qty: 3 0RF
Continued
acetaminophen [Tylenol] 325 mg Tablet
650 mg PO Q6HPRN PRN (Reason: mild pain)
Crexont 35-140 mg Capsule,Ir -Extend Rel,Biphase
1 cap PO BID
Discontinued
diazepam 10 mg Tablet
10 mg PO HSPRN PRN (Reason: sleep)
Discharge Orders:
Discharge Patient (As Directed); Ordered 01/05/25
Ordered By: Mahad Concepcion
Discharge Date and Time
Discharge Date/Time: 01/05/25 15:59
Print Language: MONGOLIAN
[2025-01-05 15:57] VITALS: BP 119/61
--- NOTE | 2025-01-12 16:43 | PN.CDI ---
CDI
- -
CDI:
Physician Documentation Request
Admit Date: 01/01/25 11:49
Dear Doctor Jamey,
Please review the following and provide your response in the progress notes.
Clinical Indicators:
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
Additional clinical indicators in the chart include:
Pt admitted with Left Thigh Mass Imaging suspicious for malignant process.
Please indicate in your progress notes if you are in agreement that the above diagnosis is valid for this patient:
____ - High grade spindle cell sarcoma, favor leiomyosarcoma is a valid diagnosis
____ - High grade spindle cell sarcoma, favor leiomyosarcoma is not a valid diagnosis for this patient
____ - Other
Use of terms such as suspected, likely, concern for, or probable are acceptable for a diagnosis that is being evaluated, monitored or treated as if it exists and can be coded in the inpatient setting, when documented at the time of discharge.
Thank you,
Azra Mcelroy RN
CDI Specialist
[facility]
Please use your independent medical judgment in providing your response.
--- NOTE | 2025-01-13 09:15 | PN.CDI ---
CDI
- -
CDI:
Physician Documentation Request
Admit Date: 01/01/25 11:49
Dear Doctor ,
Please review the following and provide your response in the progress notes.
Clinical Indicators:
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
Additional clinical indicators in the chart include:
Pt admitted with Left Thigh Mass Imaging suspicious for malignant process.
Please indicate in your progress notes if you are in agreement that the above diagnosis is valid for this patient:
____ - High grade spindle cell sarcoma, favor leiomyosarcoma is a valid diagnosis
____ - High grade spindle cell sarcoma, favor leiomyosarcoma is not a valid diagnosis for this patient
____ - Other
Use of terms such as suspected, likely, concern for, or probable are acceptable for a diagnosis that is being evaluated, monitored or treated as if it exists and can be coded in the inpatient setting, when documented at the time of discharge.
Thank you,
Azra Mcelroy RN
CDI Specialist
[facility] [employer]
Please use your independent medical judgment in providing your response.
== END 2025-01-05 15:59 | DRG 543 ==
LOC: 3 WEST ACU 11:49
PROVIDERS: Physician Assistant Medical; Radiology Vascular & Interventional Radiology; ADMITTING PHYSICIAN Hospitalist; ATTENDING PHYSICIAN Internal Medicine; CONSULT PHYSICIAN Internal Medicine Hematology & Oncology; EMERGENCY PHYSICIAN Student in an Organized Health Care Education/Training Program; FAMILY PHYSICIAN Internal Medicine; OTHER PHYSICIAN Psychiatry & Neurology Psychiatry
PROC: 0JBM3ZX Excision of Left Upper Leg Subcutaneous Tissue and Fascia, Percutaneous Approach, Diagnostic (ICD-10-PCS; 2025-01-01)
DX: C49.22 Malignant neoplasm of connective and soft tissue of left lower limb, including hip (principal); C78.00 Secondary malignant neoplasm of unspecified lung; E44.0 Moderate protein-calorie malnutrition; R45.851 Suicidal ideations; J45.909 Unspecified asthma, uncomplicated; R19.00 Intra-abdominal and pelvic swelling, mass and lump, unspecified site; F32.A Depression, unspecified; R59.9 Enlarged lymph nodes, unspecified; G54.0 Brachial plexus disorders; R63.0 Anorexia; K86.9 Disease of pancreas, unspecified; R91.8 Other nonspecific abnormal finding of lung field; N40.1 Benign prostatic hyperplasia with lower urinary tract symptoms; N39.498 Other specified urinary incontinence; F41.9 Anxiety disorder, unspecified; G20.A1 Parkinson's disease without dyskinesia, without mention of fluctuations; I34.0 Nonrheumatic mitral (valve) insufficiency; Z60.8 Other problems related to social environment; Z60.2 Problems related to living alone; Z87.891 Personal history of nicotine dependence; Z82.49 Family history of ischemic heart disease and other diseases of the circulatory system; Z79.01 Long term (current) use of anticoagulants; Z68.23 Body mass index [BMI] 23.0-23.9, adult
CPT/HCPCS: 88305; 20206; 71270; 72193; 74170; 76942; 80048; 80053; 81003; 82607; 82746; 84443; 85025; 85027; 88333; 88334; 88341; 88342; 97110; 97116; 97163; 97167; 97530; 99285; Q9967